=== PATIENT | male | born 1970 | race Hispanic/Latino ===

== ENCOUNTER 2018-06-07 12:45 | Inpatient (IN) | payer MEDICARE ==
[~2018-06-07] VITALS: Ht 165.1 cm; Wt 95.0 kg
[2018-06-07] MEDS ORDERED: PIPERACILLIN/TAZO 4.5 GM 100 ML IV STA (12:58)
[2018-06-07] MEDS ORDERED: VANCOMYCIN 1GM/NS 250 ML 250 ML IV STA (12:58)
[2018-06-07] MEDS ORDERED: SODIUM CHLORIDE 0.9% 1000ML 1,000 ML IV STA (12:58)
[2018-06-07] MEDS ORDERED: INSULIN REGULAR, HUMAN 100 UNIT/1 ML 3ML VIAL SQ ONE (13:00)
[2018-06-07 13:09] LABS: BASOPHILS % 0.3 % (0.0-1.0); EOSINOPHILS # (AUTO) 0.3 (0.0-0.4); EOSINOPHILS % 3.6 % (0.0-6.0); HEMATOCRIT 43.1 % (38.2-49.6); HEMOGLOBIN 14.8 g/dL (14.0-18.0); LYMPHOCYTES # (AUTO) 0.9 (1.0-3.2); LYMPHOCYTES % 9.8 % (18.0-39.1); MEAN CORPUSCULAR HEMOGLOBIN 30.4 pg (28-32); MEAN CORPUSCULAR HGB CONC 34.3 g/dL (31-35); MEAN CORPUSCULAR VOLUME 88.5 fL (81-99); MONOCYTES # (AUTO) 0.7 (0.2-0.8); MONOCYTES % 8.1 % (4.4-11.3); NEUTROPHILS # (AUTO) 7.1 (2.1-6.9); NEUTROPHILS % 77.9 % (38.7-80.0); PLATELET COUNT 330 x10e3/uL (140-360); RED BLOOD COUNT 4.87 x10e6/uL (4.3-5.7)
[2018-06-07 13:25] LABS: ALBUMIN 2.6 g/dL (3.5-5.0); ALBUMIN/GLOBULIN RATIO 0.5 (0.8-2.0); ANION GAP 14.7 mmol/L (8-16); CALCIUM 9.2 mg/dL (8.4-10.2); CREATININE, SERUM 1.39 mg/dL (0.72-1.25); POTASSIUM 3.7 mmol/L (3.5-5.1)
--- NOTE | 2018-06-07 13:45 | Diagnostic Imaging Report ---
PROCEDURE:X-RAY RIGHT FOOT, COMPLETE COMPARISON:None. INDICATIONS:OSTEOMYLITIS FINDINGS: There are no fractures, dislocations, lytic or blastic lesions. The bones are well-mineralized. Right great toe soft tissue defect, edema, and mild emphysema without underlying osseous erosion. Mild vascular calcification. CONCLUSION: Soft tissue changes of right great toe without definite underlying osseous changes to suggest osteomyelitis. Dictated by: Moses Shelby M.D. on 06/07/2018 at 13:51 Electronically approved by: Moses Shelby M.D. on 06/07/2018 at 13:51
[2018-06-07] MEDS ORDERED: MORPHINE SULFATE 2 MG/ML SYR IV PRN (16:15)
[2018-06-07] MEDS ORDERED: ONDANSETRON HCL INJ 2 MG/ML VIAL IV PRN (16:15)
[2018-06-07] MEDS: SODIUM CHLORIDE 0.9% 1000ML 1,000 ML IV SCH (17:04)
[2018-06-07] MEDS ORDERED: PIPER-TAZ 3.375 GM 50 ML IV SCH (18:00)
[2018-06-07 18:08] VITALS: BP 138/84
[2018-06-07 18:17] VITALS: BP 138/84
[2018-06-07 20:00] VITALS: BP 159/92
[2018-06-07] MEDS: PIPER-TAZ 3.375 GM 50 ML IV SCH (20:00)
[2018-06-07 20:17] VITALS: BP 159/92
[2018-06-07] MEDS ORDERED: DEXTROSE 50% SYRINGE 50 ML IV PRN (21:00)
[2018-06-07] MEDS: MORPHINE SULFATE INJ 4 MG/ML INJ IV PRN (21:17)
[2018-06-07] MEDS: INSULIN REGULAR, HUMAN 100 UNIT/1 ML 3ML VIAL SQ SCH (21:22)
[2018-06-07] MEDS ORDERED: ABILIFY5 MG PO (22:27)
[2018-06-07] MEDS ORDERED: PROZAC20 MG PO (22:27)
[2018-06-07] MEDS ORDERED: METFORMIN HCL500 MG PO ×2 (22:27)
[2018-06-08] VITALS (8 sets, daily range): BP systolic 142–186; BP diastolic 72–99
[2018-06-08] MEDS: PIPER-TAZ 3.375 GM 50 ML IV SCH ×4 (02:05→19:47)
[2018-06-08] MEDS: SODIUM CHLORIDE 0.9% 1000ML 1,000 ML IV SCH ×4 (02:05→22:47)
[2018-06-08 05:20] LABS: BASOPHILS # (AUTO) 0.1 (0.0-0.1); BASOPHILS % 0.6 % (0.0-1.0); EOSINOPHILS # (AUTO) 0.6 (0.0-0.4); EOSINOPHILS % 5.8 % (0.0-6.0); HEMATOCRIT 39.7 % (38.2-49.6); HEMOGLOBIN 13.1 g/dL (14.0-18.0); LYMPHOCYTES % 10.5 % (18.0-39.1); MEAN CORPUSCULAR HEMOGLOBIN 30.2 pg (28-32); MEAN CORPUSCULAR VOLUME 91.5 fL (81-99); MONOCYTES % 9.7 % (4.4-11.3); NEUTROPHILS # (AUTO) 7.2 (2.1-6.9); PLATELET COUNT 332 x10e3/uL (140-360); RED BLOOD COUNT 4.34 x10e6/uL (4.3-5.7); RED CELL DISTRIBUTION WIDTH 12.3 % (11.7-14.4)
[2018-06-08 05:52] LABS: ANION GAP 12.4 mmol/L (8-16); BLOOD UREA NITROGEN 15 mg/dL (7-26); BUN/CREATININE RATIO 12 (6-25); CALCIUM 8.8 mg/dL (8.4-10.2); CARBON DIOXIDE 27 mmol/L (22-29); CHLORIDE 101 mmol/L (98-107); CREATININE, SERUM 1.22 mg/dL (0.72-1.25); EST GLOMERULAR FILTRATION RATE > 60 ML/MIN (60-); GLUCOSE 241 mg/dL (74-118); POTASSIUM 4.4 mmol/L (3.5-5.1); SODIUM 136 mmol/L (136-145)
[2018-06-08] MEDS: INSULIN REGULAR, HUMAN 100 UNIT/1 ML 3ML VIAL SQ SCH ×4 (07:30→19:56)
[2018-06-08 07:33] LABS: CHOL/HDL RATIO 2.8 (3.9-4.7)
--- NOTE | 2018-06-08 08:50 | History and Physical ---
PRIMARY CARE PHYSICIAN: [facility]. CHIEF COMPLAINT: Right foot great toe odor and swelling. HISTORY OF PRESENT ILLNESS: This is a 47-year-old man with a history of diabetes mellitus and diabetic foot ulcers with toe amputations in the past with continued cigarette use, now coming in with right foot great toe swelling and odor for the past several days. He has not had antibiotics as an outpatient. He is admitted for further evaluation and management. PAST MEDICAL HISTORY: Diabetes mellitus, type 2, hypertension, hyperlipidemia, cigarette use, diabetic foot ulcer, status post left foot toe amputations. PAST SURGICAL HISTORY: Left foot toe amputations in 2015. ALLERGIES: PER ELECTRONIC MEDICAL RECORD. FAMILY HISTORY/SOCIAL HISTORY: Patient is . He has no children. No alcohol. No illicits. He smokes a quarter pack of cigarettes per day. MEDICATIONS: Per electronic medical record. REVIEW OF SYSTEMS: Denies any dizziness, chest pain, shortness of breath, fever, chills, sweats, nausea, vomiting, diarrhea, back pain, headache. PHYSICAL EXAMINATION VITAL SIGNS: Have been reviewed. GENERAL: A tired-appearing man resting in bed. HEENT: Anicteric. Pupils respond to light. No oral lesions. CARDIOVASCULAR: Normal S1 and S2. LUNGS: Moderate breath sounds. ABDOMEN: Soft, nontender and nondistended. EXTREMITIES: No edema of the forelegs. His left foot has 1st, 2nd, and 3rd digits are absent. The old surgical site appears clean and dry and well-healed. His right foot has great toe which is edematous with necrotic changes, malodorous and nontender. Black necrotic appearing sites are seen on that toe. SKIN: Dry. PSYCHIATRIC: Flat affect. LABS: Reviewed. MEDICATIONS: Reviewed. ASSESSMENT: This is a 47-year-old man with: 1. Right great toe cellulitis and gangrene. 2. Acute kidney injury. 3. Hyponatremia. 4. Diabetes mellitus, type 2. 5. Cigarette use. PLAN 1. Continue antibiotics. He is on vancomycin and Zosyn. 2. Will obtain a vancomycin trough before the 3rd dose. 3. Will obtain a sed rate and CRP. 4. Podiatry consultation. 5. Counseled on cigarette cessation. Start nicotine patch. 6. Consult cardiovascular for evaluation of . 7. Rehydrate the patient. 8. Reassess labs. 9. Start heparin for DVT prophylaxis and Pepcid. 10. Follow up MRI of the foot to evaluate for osteomyelitis. Job#: [id number] RI
[2018-06-08] MEDS: FLUOXETINE HCL 20 MG CAP PO SCH (09:00)
[2018-06-08] MEDS: VANCOMYCIN 1GM/NS 250 ML 250 ML IV SCH (09:00)
[2018-06-08] MEDS ORDERED: ARIPIPRAZOLE 20 MG TAB PO SCH (09:00)
[2018-06-08] MEDS: HEPARIN SOD (PORCINE) 5,000 UNIT/ML VIAL SC SCH ×2 (09:00→20:01)
[2018-06-08] MEDS: NICOTINE 7 MG PATCH TOP SCH (09:00)
[2018-06-08] MEDS: ARIPIPRAZOLE 5 MG TABLET PO SCH (09:00)
[2018-06-08] MEDS: FAMOTIDINE 20 MG TAB PO SCH ×2 (09:00→16:30)
[2018-06-08] MEDS ORDERED: GADOBENATE DIMEGLUMINE 1 ML IV ONE (10:39)
--- NOTE | 2018-06-08 12:32 | Diagnostic Imaging Report ---
MRI of the right forefoot with and without contrast. History: Great toe infection. Osteomyelitis. Diabetes. Technique: Multiplanar multisequence MRI of the right forefoot with and without IV contrast. 20 cc IV gadolinium contrast material was administered. Comparison: None Findings: There is abnormal skin ulceration, skin thickening and soft tissue edema at the plantar aspect of the great toe. There is an adjacent 1 cm ill-defined fluid collection with slight peripheral contrast enhancement and extension to the skin surface best seen on series 10 image 23 and 24. Additionally, there is underlying bone marrow edema in the distal phalanx of the first toe. The findings are consistent with osteomyelitis. No ligamentous or tendon tear is seen. The visualized muscles are normal in size, signal intensity and morphology. No acute fracture, dislocation or evidence of avascular necrosis. Mild scattered degenerative changes are seen. Soft tissue edema about the foot most pronounced dorsally. Impression: Skin ulceration, cellulitis, developing phlegmon/early abscess and osteomyelitis in the distal first toe as described above. Signed by: Dr. Lincoln Jimenez M.D. on 06/08/2018 12:29 PM
[2018-06-09] VITALS (7 sets, daily range): BP systolic 145–175; BP diastolic 81–97
--- NOTE | 2018-06-09 00:28 | Consultation ---
AUDIO CUTTING IN AND OUT IN MULTIPLE PORTIONS OF THE REPORT DATE OF CONSULTATION: June 08, 2018 CARDIOLOGY CONSULTATION CHIEF COMPLAINT: Right 1st toe ulcer with erythema. HISTORY OF PRESENT ILLNESS: Mr. Christiansen is a 47-year-old man with history of diabetes mellitus, type 2, uncontrolled, hypertension, dyslipidemia, smoker actively, and history of right 1st toe amputation, who presents to [facility] with nonhealing ulcer to the right 1st toe associated with erythema in the surrounding area with secretions. Imaging studies are significant for suggestion of abscess, phlegmon associated to ulcer and cellulitis, as well as osteomyelitis of the 1st toe. His initial lactic acid was borderline elevated at 20.3 with an upper limit of normal for range of 19.8. His blood cultures have been negative times 24 hours. His white count was 9.8 and his hemoglobin 13.1 with a creatinine of 1.22, a glucose of 231 with a hemoglobin A1c of 10.9. His LDL was 79, his HDL was 59, and his triglycerides were within normal range at 131. He denies any active chest pain or shortness of breath. He describes pain to the left foot at the wound area. PAST MEDICAL HISTORY: Significant for as described above, diabetes mellitus type 2, hypertension, dyslipidemia, left 1st toe amputation in 2015. ALLERGIES: PER EMR. REVIEW OF SYSTEMS: Reviewed and negative except for as noted above. FAMILY HISTORY: Smoked about a pack of cigarettes daily. MEDICATIONS: Reviewed. Please see medication reconciliation form. PHYSICAL EXAM VITALS: Temperature 99.2, heart rate 92, respiratory rate 19, blood pressure 186/97, O2 sat 97%. GENERAL: In no acute distress, alert. HEENT: Pupils equal and responsive to light. NECK: No JVD. CHEST: Clear to auscultation bilaterally. CARDIOVASCULAR: Regular rate and rhythm with normal S1 and S2. No S3, no S4. No murmurs, no rubs. ABDOMEN: Soft, nontender. EXTREMITIES: No edema. Decreased pulses felt bilaterally. Left 1st toe amputation scar noted. Right 1st with ulcer and erythema, covered with dressings. STUDIES: Reviewed. As described above. MEDICATIONS: Reviewed. ASSESSMENT: A 47-year-old. 1. Right great toe ulcer with gangrene and cellulitis, as well as osteomyelitis. 2. Status post acute kidney injury with chronic kidney disease. 3. Diabetes mellitus, type 2, currently uncontrolled. 4. HLD 5. Hypertension. 6. Dyslipidemia. RECOMMENDATIONS: patient is undergoing hydration. Monitor renal function to assess stability. Will consider angiography. Arterial Doppler BLE ordered. Job#: [id number] CQ MTDD
[2018-06-09] MEDS: PIPER-TAZ 3.375 GM 50 ML IV SCH ×4 (01:54→21:43)
[2018-06-09] MEDS ORDERED: SODIUM CHLORIDE 0.9% 1000ML 1,000 ML IV SCH (05:15)
[2018-06-09] MEDS: ACETAMINOPHEN 325 MG TAB PO PRN ×2 (05:40→21:58)
[2018-06-09] MEDS: FAMOTIDINE 20 MG TAB PO SCH ×2 (07:50→16:25)
--- NOTE | 2018-06-09 08:17 | Progress Note ---
DATE: June 09, 2018 TIME: 7:57 a.m. OVERNIGHT: The patient has osteomyelitis to the toe. REVIEW OF SYSTEMS: Denies any dizziness, chest pain, shortness of breath, fever, chills, sweats, nausea, vomiting, diarrhea, headache, blurred vision. PHYSICAL EXAMINATION VITAL SIGNS: Reviewed. GENERAL: A tired-appearing man resting in bed. HEENT: Anicteric. CARDIOVASCULAR: Normal S1 and S2. LUNGS: Moderate breath sounds. ABDOMEN: Soft, nontender and nondistended. EXTREMITIES: No edema of the foreleg. He has left foot with 1st, 2nd and 3rd digits absent. Old surgical scar site is clean and dry and well-healed. He has a right foot with great toe edematous and necrotic changes, malodorous, and nontender. Black necrotic changes seen. SKIN: Dry. PSYCHIATRIC: Flat affect. LABS: Reviewed. MEDICATIONS: Reviewed. ASSESSMENT: A 47-year-old man with: 1. Right great toe cellulitis and gangrene. 2. Acute kidney injury. 3. Osteomyelitis of the right great toe. 4. Hyponatremia. 5. Diabetes mellitus, type 2. 6. Cigarette use. PLAN 1. Continue antibiotics. 2. LTAC evaluation. 3. Follow up angiogram 4. Will need antibiotics for at least 4 weeks. 5. Continue nicotine patch. 6. Cultures of the wound show gram-negative bacillus and group B strep so far. 7. Sed rate was elevated at 80. 8. Hemoglobin A1c was 10.9, elevated. His LDL was 79 and triglycerides 131. 9. Continue care. 10. Better blood pressure control needed. Will titrate his calcium channel luz up. Job#: [id number] ALIRIO
[2018-06-09] MEDS: HEPARIN SOD (PORCINE) 5,000 UNIT/ML VIAL SC SCH ×2 (08:40→21:43)
[2018-06-09] MEDS: NICOTINE 7 MG PATCH TOP SCH (08:55)
[2018-06-09] MEDS: ARIPIPRAZOLE 5 MG TABLET PO SCH (08:55)
[2018-06-09] MEDS: FLUOXETINE HCL 20 MG CAP PO SCH (08:55)
[2018-06-09] MEDS: NIFEDIPINE CR 30 MG TAB PO SCH ×2 (08:55→21:43)
[2018-06-09] MEDS ORDERED: NIFEDIPINE CR 30 MG TAB PO SCH (09:00)
[2018-06-09] MEDS: VANCOMYCIN 1GM/NS 250 ML 250 ML IV SCH ×2 (09:25→22:20)
[2018-06-09] MEDS: INSULIN REGULAR, HUMAN 100 UNIT/1 ML 3ML VIAL SQ SCH ×4 (11:45→21:00)
--- NOTE | 2018-06-09 13:24 | Progress Note ---
DATE: June 09, 2018 CARDIOLOGY PROGRESS NOTE SUBJECTIVE: No complaints. OBJECTIVE VITAL SIGNS: Temperature 97.1, heart rate 95, respiratory rate 18, blood pressure 175/92. GENERAL: In no acute distress. Alert. NECK: No JVD. CHEST: Clear to auscultation. CARDIOVASCULAR: Regular rate and rhythm. Normal S1 and S2. No S3. No S4. ABDOMEN: Soft and nontender. EXTREMITIES: No edema. Left first toe stump/scar. Right first toe wound. STUDIES: Reviewed. Glucose 354. ASSESSMENTS 1. Right first toe ulceration with abnormal pulsation, highly concerning for peripheral arterial disease, status post arterial Doppler pending review. 2. Diabetes mellitus, uncontrolled. 3. History of left first toe amputation. RECOMMENDATIONS: Arterial Dopplers currently not downloaded. Once available, will review. Will plan tentatively toward peripheral angiography and possible peripheral intervention tomorrow in the afternoon as cath schedule allows. Initiate hydration. NPO after breakfast starting tomorrow. Job#: [id number] ARTHUR
--- NOTE | 2018-06-09 13:43 | Consultation ---
DATE OF CONSULTATION: June 09, 2018 REASON FOR CONSULTATION: Gangrene with pain to the right foot with patient being a bfl-wljmwtx-pckieorag diabetic. HISTORY OF PRESENT ILLNESS: This is a pleasant 47-year-old male with a history of usb-crchinc-cltwxqwxf diabetes times 15+ years and depression, who relates he has had a lesion to the right great toe, starting getting significantly worse, started having some nausea and fever upon presentation. Denies any history of fever, chills, nausea or vomiting at this time since he has been getting his IV antibiotics. He is currently on IV vancomycin and Zosyn. He has pain along the 1st metatarsophalangeal joint of the right foot when wearing shoes. PAST MEDICAL HISTORY: As described above. PAST SURGICAL HISTORY: Remarkable for multiple left foot surgeries including amputations to 1st through 3rd toes, left foot. ALLERGIES: Patient denies. SOCIAL HISTORY: He used to smoke a pack a day of cigarettes daily. Relates he stopped. Does not do any drugs or alcohol. Lives with his mom and sister. . Has no kids. FAMILY HISTORY: Remarkable for diabetes. CURRENT MEDICATIONS: Include IV vancomycin and Zosyn. REVIEW OF SYSTEMS CARDIAC: Is denying any palpitations or arrhythmias. RESPIRATORY: Denies any shortness of breath or productive cough. GASTROINTESTINAL: Denies any diarrhea or constipation. GENITOURINARY: Denies hematuria or problems voiding. VITALS: Afebrile. Pulse rate 95, respirations 18, blood pressure 175/92, O2 saturation 96%. LABS: Noted. Has a white blood cell count of 9.2, hemoglobin 13.1 with a platelet count of 332, hematocrit of 39.7. PODIATRIC PHYSICAL EXAMINATION: Reveals the following. VASCULAR: Pedal pulses to both the DP and PT are palpable but diminished. CFT to all toes except the right great toe is less than 4 seconds. NEUROLOGICAL: There is a complete loss of protective sensation when utilizing Cogswell-Mario 5.07 monofilament wire. MUSCULOSKELETAL: Shows muscle mass to be asymmetrical. Some swelling noted to the right foot and leg when compared to the left. Has pain along the 1st MPJ, right foot. Erythema to the 1st metatarsal head. DERMATOLOGICAL Reveals gangrenous changes with grade 4 ulcer right great toe, which has foul smell in nature. X RAYS: Are questionable for osteomyelitis. Does have what seems to be an abscess to the distal aspect of the right great toe. ASSESSMENTS 1. Hallux valgus deformity. 2. Gangrene. 3. Osteomyelitis with abscess right foot. PLAN: Will start diluted wet-to-dry Betadine b.i.d. Will continue IV antibiotics. Will let the foot demarcate. Patient will be scheduled for surgical intervention on Thursday which will consist of I and D of the right foot, amputation right great toe, partial resection of the 1st metatarsal head, right foot with rotational flap closure. Patient understands. No warranties or guarantees will be given. Will continue to follow. Job#: [id number] ARTHUR
[2018-06-09] MEDS: SODIUM CHLORIDE 0.9% 1000ML 1,000 ML IV SCH ×2 (14:13→21:43)
--- NOTE | 2018-06-09 14:46 | Consultation ---
DATE OF CONSULTATION: June 09, 2018 ATTENDING PHYSICIAN: Dr. Carlos Chavarria REASON FOR CONSULTATION: Osteomyelitis of the toe. Thank you, Dr. Chavarria, for asking me to see this patient. HISTORY: The patient is a 47-year-old man referred for osteomyelitis of the toe. He presented to the emergency department on 06/07/2018 with progressive swelling and black discoloration of the right great toe. He developed blisters of the toe a few days earlier but did not seek medical help and treated himself with Iodosorb left over from prior admission. He denies fever and chills. In the emergency department, he was noted to have temperature 99.7 degrees Fahrenheit, pulse 102, respiratory rate 18, blood pressure 180/89, and oxygen saturation 99% on room air. Initial laboratory studies showed blood leukocyte count of 9,090, ESR 80, BUN 18, creatinine 1.38, and blood glucose 361. MRI of the right foot showed skin ulceration, cellulitis, developing phlegmon/early abscess and osteomyelitis of the distal 1st toe. The patient has been evaluated by the podiatry service, and surgery is being planned. PAST MEDICAL HISTORY: Diabetes mellitus type 2, peripheral neuropathy, hypertension, right great toe ulcer. PAST SURGICAL HISTORY: Amputation of the 1st through 3rd toes of the left foot. ALLERGIES: NO KNOWN DRUG ALLERGIES. MEDICATIONS: The current antibiotics are Zosyn 3.375 grams IV piggyback q.6 h. and vancomycin 1 gram IV piggyback daily. IMMUNIZATIONS: Patient has not received tetanus-diphtheria vaccine to the best of his knowledge. FAMILY HISTORY: Noncontributory. SOCIAL HISTORY: He smokes 1/2 pack of cigarettes a day. He quit drinking alcohol in 2012. No recreational drug use. REVIEW OF SYSTEMS: As per history of present illness. PHYSICAL EXAMINATION VITALS: T-max 99.2, pulse 95, respiratory rate 18, blood pressure 175/92, and weight 211 pounds. GENERAL: In no acute distress. HEENT: Normocephalic. There is no icterus or injection of conjunctivae. There is no ear or nasal discharge. Moist oral mucosa. No pharyngeal exudate. NECK: Supple. No lymphadenopathy or meningismus. LUNGS: Good air entry bilaterally. HEART: Normal S1 and S2. ABDOMEN: Normal bowel sounds. The abdomen is soft and nontender. EXTREMITIES: There is gangrene of the right great toe with malodor. There is trace edema of the right forefoot. The dorsalis pedis and posterior tibial pulses are difficult to palpate in both feet. The left 1st through 3rd toes are absent. SKIN: As per extremities. EXECUTIVE ACCOUNT MANAGER: Awake, alert and oriented to person, place and time. There is decreased sensation on monofilament examination of the feet. LABORATORY AND DIAGNOSTICS: 06/08/2018: WBC 9,820, hemoglobin 13.1, platelets 332,000, neutrophils 73, lymphs 10.5, monos 9.7, eosinophils 5.8, basophils 0.2, BUN 15, creatinine 1.22, blood glucose 354. C-reactive protein pending. Vancomycin trough 3.3. IMPRESSION 1. Infected diabetic foot ulcer. 2. Gangrene of the right 1st toe. 3. Diabetes mellitus, type 2, with peripheral neuropathy, uncontrolled. 4. Tobacco use disorder. PLAN 1. Check arterial Doppler ultrasound of the right lower extremity. 2. Await surgery. Deep tissue distally should be obtained during surgery for culture and sensitivity. 3. Change vancomycin to 1 gram IV piggyback q.12 h. Administer tetanus-diphtheria vaccination. 4. Smoking cessation counseling was provided to the patient. The patient was offered nicotine replacement therapy, but he declined. Job#: [id number]
[2018-06-09] MEDS: MORPHINE SULFATE INJ 4 MG/ML INJ IV PRN (14:49)
[2018-06-09] MEDS ORDERED: TETANUS/DIPHTHERIA TOX ADULT 0.5 ML SYR IM NR (15:00)
[2018-06-10] VITALS (8 sets, daily range): BP systolic 124–174; BP diastolic 73–93
[2018-06-10] MEDS: PIPER-TAZ 3.375 GM 50 ML IV SCH ×4 (02:00→21:47)
[2018-06-10] MEDS: SODIUM CHLORIDE 0.9% 1000ML 1,000 ML IV SCH ×3 (04:12→20:12)
[2018-06-10 05:14] LABS: BASOPHILS # (AUTO) 0.1 (0.0-0.1); BASOPHILS % 0.7 % (0.0-1.0); EOSINOPHILS # (AUTO) 0.7 (0.0-0.4); EOSINOPHILS % 9.1 % (0.0-6.0); HEMATOCRIT 42.2 % (38.2-49.6); HEMOGLOBIN 14.1 g/dL (14.0-18.0); LYMPHOCYTES # (AUTO) 1.3 (1.0-3.2); LYMPHOCYTES % 16.2 % (18.0-39.1); MEAN CORPUSCULAR HEMOGLOBIN 30.2 pg (28-32); MEAN CORPUSCULAR HGB CONC 33.4 g/dL (31-35); MEAN CORPUSCULAR VOLUME 90.4 fL (81-99); MONOCYTES # (AUTO) 0.7 (0.2-0.8); MONOCYTES % 8.6 % (4.4-11.3); NEUTROPHILS # (AUTO) 5.3 (2.1-6.9); NEUTROPHILS % 64.5 % (38.7-80.0); PLATELET COUNT 396 x10e3/uL (140-360); RED BLOOD COUNT 4.67 x10e6/uL (4.3-5.7); RED CELL DISTRIBUTION WIDTH 12.2 % (11.7-14.4)
[2018-06-10 05:41] LABS: ANION GAP 15.9 mmol/L (8-16); BLOOD UREA NITROGEN 11 mg/dL (7-26); BUN/CREATININE RATIO 9 (6-25); CALCIUM 9.5 mg/dL (8.4-10.2); CARBON DIOXIDE 23 mmol/L (22-29); CHLORIDE 103 mmol/L (98-107); CREATININE, SERUM 1.16 mg/dL (0.72-1.25); EST GLOMERULAR FILTRATION RATE > 60 ML/MIN (60-); GLUCOSE 178 mg/dL (74-118); POTASSIUM 3.9 mmol/L (3.5-5.1); SODIUM 138 mmol/L (136-145)
[2018-06-10] MEDS: MORPHINE SULFATE INJ 4 MG/ML INJ IV PRN ×2 (05:57→14:19)
[2018-06-10] MEDS: INSULIN REGULAR, HUMAN 100 UNIT/1 ML 3ML VIAL SQ SCH ×4 (07:48→21:00)
[2018-06-10] MEDS: FAMOTIDINE 20 MG TAB PO SCH ×2 (08:12→16:30)
[2018-06-10] MEDS: ARIPIPRAZOLE 5 MG TABLET PO SCH (08:14)
[2018-06-10] MEDS: FLUOXETINE HCL 20 MG CAP PO SCH (08:14)
[2018-06-10] MEDS: NICOTINE 7 MG PATCH TOP SCH (08:14)
[2018-06-10] MEDS: NIFEDIPINE CR 30 MG TAB PO SCH ×2 (08:14→21:00)
--- NOTE | 2018-06-10 08:20 | Progress Note ---
DATE: June 10, 2018 TIME: 7:57 a.m. OVERNIGHT: No events. REVIEW OF SYSTEMS: Denies any dizziness or chest pain. PHYSICAL EXAMINATION VITAL SIGNS: Reviewed. GENERAL: A tired-appearing man resting in bed. HEENT: Anicteric. CARDIOVASCULAR: Normal S1 and S2. LUNGS: Moderate breath sounds. ABDOMEN: Soft and nontender. EXTREMITIES: He has no edema of the left foot. On the left foot, absent 1st, 2nd and 3rd digits. He has a right foot with necrotic appearing toe with dressing in place. SKIN: Dry. PSYCHIATRIC: Flat affect. LABS: Reviewed. MEDICATIONS: Reviewed. ASSESSMENT: A 47-year-old man with: 1. Right great toe cellulitis and gangrene. 2. Osteomyelitis of the right great toe. 3. Acute kidney injury. 4. Hyponatremia. 5. Diabetes mellitus, type 2. 6. Cigarette use. 7. Proteus mirabilis and group B streptococcus osteomyelitis. PLAN 1. Continue antibiotics. 2. Angiogram today. 3. Possible amputation tomorrow. 4. LTAC evaluation. 5. Hemoglobin A1c 10.9, LDL 79 and triglycerides 131. 6. Sed rate was 80. 7. Blood pressure better controlled today. Job#: [id number] [place]
[2018-06-10 09:20] LABS: INR 1.01; PROTHROMBIN TIME 12.5 seconds (11.9-14.5)
--- NOTE | 2018-06-10 09:26 | Progress Note ---
DATE: June 10, 2018 SUBJECTIVE: Patient at bedside. Denying any history of fever, chills, nausea or vomiting. No shortness of breath, no chest pain. OBJECTIVE VITAL SIGNS: Afebrile. Pulse rate 94, respirations 18, blood pressure 144/93, and O2 saturation 95%. EXTREMITIES: Has gangrenous changes to the right great toe with a grade 4 ulceration, foul smell present. Erythema surrounding first metatarsophalangeal joint with decreased cellulitis to the dorsal aspect of right foot. LABS: Noted. Has a white blood cell count of 8.15, hemoglobin 14.1, hematocrit 42.2 with a platelet count of 396,000. Blood glucose of 178. ASSESSMENT: Grade 4 ulcer, abscess, osteomyelitis with hallux valgus deformity, capsulitis, 1st metatarsophalangeal joint. PLAN: Patient will be taken for surgical intervention tomorrow. Surgery will consist of I and D of abscess, amputation of right great toe, partial resection of first metatarsal right foot with rotational flap closure. Patient understands no warranties or guarantees can be given, may need further surgery if not responsive. Will continue local wound care and IV antibiotics such as vancomycin and Zosyn. Chest x-ray and EKG will also be ordered. Job#: [id number]
[2018-06-10] MEDS: VANCOMYCIN 1GM/NS 250 ML 250 ML IV SCH ×2 (09:28→22:35)
--- NOTE | 2018-06-10 17:30 | Diagnostic Imaging Report ---
EXAMINATION: PA and lateral views of the chest. COMPARISON: None CLINICAL HISTORY: Right great toe amputation DISCUSSION: Lines/tubes: None. Lungs: The lungs are well inflated and clear. There is no evidence of pneumonia or pulmonary edema. Pleura: There is no pleural effusion or pneumothorax. Heart and mediastinum: Mild enlargement of the cardiac silhouette. Pulmonary vasculature is normal. Bones and soft tissues: No acute bony abnormalities. Degenerative changes in the thoracic spine IMPRESSION: Mild enlargement of the cardiac silhouette, without acute cardiopulmonary abnormalities. Signed by: Dr. Larry Ugarte M.D. on 06/10/2018 5:26 PM
[2018-06-11] VITALS (7 sets, daily range): BP systolic 127–153; BP diastolic 78–98
[2018-06-11] MEDS: PIPER-TAZ 3.375 GM 50 ML IV SCH ×4 (02:00→20:15)
--- NOTE | 2018-06-11 03:18 | Progress Note ---
DATE: CARDIOLOGY PROGRESS NOTE SUBJECTIVE: No complaints today. Discussed at length the Doppler arterial ultrasound findings. Significant for mild PAD as noted by Arterial Dopplers onto the images, as well as spectral broadening of waveforms, however triphasic down to foot. SUBJECTIVE VITAL SIGNS: Temperature 98.8, heart rate 95, respiratory rate 18, blood pressure 146/86. GENERAL: In no acute distress, alert. NECK: No JVD. CHEST: Clear to auscultation. CARDIOVASCULAR: Regular rate and rhythm. Normal S1 and S2. No S3, no S4. ABDOMEN: Soft. EXTREMITIES: Trace edema. Left 1st toe amputation site healed well. Right 1st toe with ulceration covered with dressings. LABS: Reviewed. Hemoglobin 14.1, platelets 396,000. ASSESSMENT AND PLAN 1. Diabetic foot with right 1st toe cellulitis and ulceration. 2. Mild peripheral artery disease as noted by the arterial Dopplers. 3. Uncontrolled diabetes. RECOMMENDATIONS: Given arterial Doppler, angiographic assessment has been deferred at this point. Aggressive management from the wound care standpoint, infectious disease standpoint, and podiatry standpoint is advised, particular attention to diabetes control advised. We will follow closely. Job#: [id number] CQ KRANTHI
[2018-06-11] MEDS: SODIUM CHLORIDE 0.9% 1000ML 1,000 ML IV SCH ×2 (04:12→13:00)
[2018-06-11] MEDS: MORPHINE SULFATE INJ 4 MG/ML INJ IV PRN (04:47)
[2018-06-11] MEDS ORDERED: BACITRACIN ZINC 15 GM OINT ONE (07:09)
[2018-06-11] MEDS ORDERED: BETAMETHASONE DISODIUM PHOS 6 MG/ML VIAL ONE (07:09)
[2018-06-11] MEDS ORDERED: BACITRACIN 50,000 UNIT VIAL ONE (07:09)
[2018-06-11] MEDS ORDERED: LIDOCAINE HCL 1% LOCAL INJ 20 ML VIAL ONE (07:09)
[2018-06-11] MEDS ORDERED: BUPIVACAINE HCL 0.5% INJ 30 ML VIAL INJ ONE (07:09)
[2018-06-11] MEDS: INSULIN REGULAR, HUMAN 100 UNIT/1 ML 3ML VIAL SQ SCH ×5 (07:30→21:00)
--- NOTE | 2018-06-11 09:45 | Operative Report ---
DATE OF PROCEDURE: June 11, 2018 PREOPERATIVE DIAGNOSES 1. Abscess, right foot. 2. Osteomyelitis, right foot. 3. Grade 4 ulcer, right great toe. 4. Hallux valgus deformity, right foot. POSTOPERATIVE DIAGNOSES: Confirmed. OPERATIVE PROCEDURES 1. Incision and drainage of abscess, right foot, down to bone. 2. Amputation, right great toe. 3. Partial resection 1st metatarsal, right foot. 4. Rotational flap closure. ANESTHESIA: General. HEMOSTASIS: Pneumatic thigh tourniquet at 350 mmHg. PROCEDURE IN DETAIL: Patient was taken into the operating room, placed on the operating room table in supine position. Following induction of general anesthesia by the anesthesiologist, Webril wraps were placed on the patient's right thigh followed by application of right thigh tourniquet. The right lower extremity was then prepped and draped in the usual aseptic manner. Following procedures were then performed. Procedure #1: I and D of abscess, right foot. Attention was directed to the distal aspect of the right great toe where an incision was carried down to the distal phalanx. Abscess was encountered and cultured for aerobic and anaerobic growth. Severe foul smell noted. Secondary to the nature of the necrosis, procedure #2 will be performed. Procedure #2: Amputation of right great toe was then done. A racquet-shaped incision was performed overlying the metatarsophalangeal joint. Then, the right great toe was disarticulated and sent for pathological analysis. Procedure # 3: Partial resection first metatarsal, right foot, secondary to protrusion of the 1st metatarsal head. Utilizing the oscillating saw, the medial 1/2 of the 1st metatarsal was excised from the operation site in toto and all rough and bony edges were rasped smooth. Procedure #4: Rotational flap closure. All necrotic tissue was then removed. The thigh tourniquet was then released and all pumpers or ligators were bovied or tied as necessary. Necrotic tissue was removed. The incision was then carried more proximally dorsally and plantarly laterally to create a plantar flap to allow for proper closure with minimal skin tension. The flap was a full-thickness flap. The flap was then dorsally displaced and the capsule was then re-aligned utilizing 2-0 Vicryl. The skin margins were then re-aligned utilizing 3-0 nylon in a horizontal mattress-type fashion with minimal skin tension. Patient was then anesthetized utilizing 12 to 14 mL of 0.5% plain Marcaine plus 5 mL of 1% Xylocaine plain and 0.5 mL of Celestone. The sterile dressing was applied. The patient was then transferred from the OR to recovery room with vital signs stable and neurovascular status intact. Minimal blood loss was obtained from the surgery. Patient will remain in the hospital for IV antibiotics. If not responsive, may need a more proximal amputation. Will continue following in the hospital. Job#: [id number]
[2018-06-11] MEDS: ARIPIPRAZOLE 5 MG TABLET PO SCH (10:09)
[2018-06-11] MEDS: VANCOMYCIN 1GM/NS 250 ML 250 ML IV SCH ×2 (10:09→21:00)
[2018-06-11] MEDS: FAMOTIDINE 20 MG TAB PO SCH ×2 (10:09→16:10)
[2018-06-11] MEDS: NIFEDIPINE CR 30 MG TAB PO SCH ×2 (10:10→20:22)
[2018-06-11] MEDS: NICOTINE 7 MG PATCH TOP SCH (10:10)
[2018-06-11] MEDS: FLUOXETINE HCL 20 MG CAP PO SCH (10:10)
[2018-06-11] MEDS: HYDROCODONE/APAP 5MG-325MG TAB PO PRN ×2 (16:10→20:15)
[2018-06-11] MEDS ORDERED: LIDOCAINE HCL 2% LOCAL INJ 5 ML SDV VIAL INJ ONE (17:31)
[2018-06-11] MEDS ORDERED: SEVOFLURANE INHAL SOLN 250 ML PEN BTL ONE (17:31)
[2018-06-11] MEDS ORDERED: DEXAMETHASONE SOD PHOS INJ 4 MG/ML VIAL ONE (17:31)
[2018-06-11] MEDS ORDERED: PROPOFOL IV EMULSION 10 MG/ML 20 ML VIAL ONE (17:31)
[2018-06-11] MEDS ORDERED: ONDANSETRON HCL INJ 2 MG/ML VIAL ONE (17:31)
[2018-06-11] MEDS ORDERED: FENTANYL CITRATE/PF 100MCG/2 ML INJ ONE (17:56)
[2018-06-11] MEDS ORDERED: MIDAZOLAM HCL 2 MG/2 ML VIAL ONE (17:56)
--- NOTE | 2018-06-11 21:01 | Progress Note ---
DATE: June 11, 2018 CARDIOLOGY PROGRESS NOTE SUBJECTIVE: No complaints. OBJECTIVE VITAL SIGNS: Reviewed and stable. GENERAL: In no acute distress, alert. NECK: No JVD. CHEST: Clear to auscultation. CARDIOVASCULAR: Regular rate and rhythm. Normal S1 and S2. No S3, no S4. ABDOMEN: Soft. EXTREMITIES: No edema. Left 1st toe amputation stump and right foot covered with dressing status post debridement by podiatry. STUDIES: Reviewed. LABS: Reviewed. MEDICATIONS: Reviewed. ASSESSMENT 1. Diabetes mellitus. 2. Diabetic foot with osteomyelitis and wound. 3. Mild peripheral artery disease by Doppler ultrasound. 4. Hypertension. RECOMMENDATIONS 1. Continue wound care and IV antibiotics. 2. ASA/ statin from a cardiovascular standpoint. May need LTAC transfer for continued care. Job#: [id number] ALESSANDRA CRISOSTOMO
--- NOTE | 2018-06-11 21:07 | Progress Note ---
DATE: June 11, 2018 TIME: 6:40 a.m. OVERNIGHT: No events. REVIEW OF SYSTEMS: Denies any dizziness, chest pain, shortness of breath, fever, chills. Denies nausea, vomiting, diarrhea. PHYSICAL EXAMINATION VITAL SIGNS: Reviewed. GENERAL: A tired-appearing man resting in bed. HEENT: Anicteric. CARDIOVASCULAR: Normal S1 and S2, without murmurs. ABDOMEN: Soft, nontender, nondistended. EXTREMITIES: Right foot great toe with necrotic changes. Left foot 1st, 2nd, and 3rd digits are absent. SKIN: Dry. PSYCHIATRIC: Normal affect. LABS: Reviewed. MEDICATIONS: Reviewed. ASSESSMENT: A 47-year-old man with 1. Right great toe cellulitis and gangrene. 2. Osteomyelitis of the right foot great toe. 3. Acute kidney injury. 4. Hyponatremia. 5. Diabetes mellitus, type 2. Hemoglobin A1c 10.9. LDL 79. Triglyceride 131. 6. Hyponatremia. 7. Cigarette abuse. 8. Proteus mirabilis and group B streptococcus osteomyelitis. PLAN 1. Surgery pending today. 2. Continue antibiotics. 3. LTAC evaluation pending. 4. Blood pressure control. Job#: [id number] CQ
[2018-06-12] MEDS: SODIUM CHLORIDE 0.9% 1000ML 1,000 ML IV SCH ×3 (00:49→11:28)
[2018-06-12 01:11] VITALS: BP 140/73
[2018-06-12] MEDS: PIPER-TAZ 3.375 GM 50 ML IV SCH ×2 (02:00→08:00)
[2018-06-12] MEDS: HYDROCODONE/APAP 5MG-325MG TAB PO PRN (04:37)
[2018-06-12 04:46] LABS: BASOPHILS % 0.3 % (0.0-1.0); EOSINOPHILS # (AUTO) 0.3 (0.0-0.4); EOSINOPHILS % 2.5 % (0.0-6.0); HEMOGLOBIN 13.5 g/dL (14.0-18.0); LYMPHOCYTES # (AUTO) 1.1 (1.0-3.2); LYMPHOCYTES % 11.5 % (18.0-39.1); MEAN CORPUSCULAR HGB CONC 33.8 g/dL (31-35); MEAN CORPUSCULAR VOLUME 88.9 fL (81-99); MONOCYTES % 9.9 % (4.4-11.3); NEUTROPHILS # (AUTO) 7.4 (2.1-6.9); NEUTROPHILS % 75.1 % (38.7-80.0); PLATELET COUNT 409 x10e3/uL (140-360)
--- NOTE | 2018-06-12 05:53 | Diagnostic Imaging Report ---
FOOT RIGHT COMPLETE Comparison: 06/07/2018 Clinical history: \S\s/p right toe amputation \[id number] \[id number] Findings: Status post interval right first toe phalanx amputation and resection of the medial distal first metatarsal. No bony erosion or acute fracture. Vascular calcifications. There is mild soft tissue swelling about the first digit with overlying bandaging. Impression: Postsurgical changes of the first toe. No radiographic evidence of osteomyelitis. Signed by: Dr Dannielle Munoz MD on 06/12/2018 5:50 AM
[2018-06-12 06:33] VITALS: BP 158/94
[2018-06-12] MEDS ORDERED: Insulin Detemir SQ (06:59)
[2018-06-12] MEDS ORDERED: LABETALOL HCL100 MG PO (06:59)
[2018-06-12] MEDS ORDERED: FAMOTIDINE20 MG PO (06:59)
[2018-06-12] MEDS ORDERED: NICODERM CQ1 EACH TOP (06:59)
[2018-06-12] MEDS ORDERED: NIFEDIPINE ER30 M1 PO (06:59)
[2018-06-12] MEDS: FAMOTIDINE 20 MG TAB PO SCH (07:30)
[2018-06-12] MEDS: INSULIN REGULAR, HUMAN 100 UNIT/1 ML 3ML VIAL SQ SCH (07:30)
[2018-06-12 08:24] VITALS: BP 135/81
[2018-06-12] MEDS: NIFEDIPINE CR 30 MG TAB PO SCH (09:00)
[2018-06-12] MEDS: ARIPIPRAZOLE 5 MG TABLET PO SCH (09:00)
[2018-06-12] MEDS: FLUOXETINE HCL 20 MG CAP PO SCH (09:00)
[2018-06-12] MEDS ORDERED: LABETALOL HCL 100 MG TAB PO SCH (09:00)
[2018-06-12] MEDS ORDERED: INSULIN DETEMIR 100 UNIT/ML PEN SQ SCH (09:00)
[2018-06-12] MEDS: NICOTINE 7 MG PATCH TOP SCH (09:00)
--- NOTE | 2018-06-12 11:27 | Diagnostic Imaging Report ---
EXAMINATION: CHEST XRAY LINE PLACEMENT 06/12/2018 10:56 AM COMPARISON: 06/10/2018 INDICATION: PICC line placement DISCUSSION: LINES: Right upper chest from the PICC line has its tip at the cavoatrial junction. LUNGS: The lungs are well inflated and clear. No pneumonia or pulmonary edema. PLEURA: No pleural effusion or pneumothorax. HEART AND MEDIASTINUM: The cardiomediastinal silhouette is unremarkable. BONES AND SOFT TISSUES: No acute osseous lesion. The soft tissues are normal. IMPRESSION: Right upper extremity PICC line has its tip at the cavoatrial junction Han Navas MD Signed by: Dr. aHn Navas M.D. on 06/12/2018 11:24 AM
[2018-06-12 11:48] LABS: ANION GAP 14.1 mmol/L (8-16); CALCIUM 9.4 mg/dL (8.4-10.2); CREATININE, SERUM 1.33 mg/dL (0.72-1.25); POTASSIUM 4.1 mmol/L (3.5-5.1)
[2018-06-12 12:24] VITALS: BP 138/88
[2018-06-12] MEDS ORDERED: ASPIRIN 81 MG CHEW TAB PO SCH (13:30)
--- NOTE | 2018-06-12 14:58 | Progress Note ---
DATE: June 12, 2018 CARDIOLOGY PROGRESS NOTE SUBJECTIVE: No complaints today. OBJECTIVE VITAL SIGNS: Temperature 96 degrees, heart rate 86, respiratory rate 19, blood pressure 138/88. O2 sat is 96% on room air. GENERAL: In no acute distress, alert. NECK: No JVD. CHEST: Clear to auscultation. CARDIOVASCULAR: Regular rate and rhythm. Normal S1 and S2. No S3, no S4. No murmurs or rubs. ABDOMEN: Soft. Nontender and nondistended. EXTREMITIES: No edema. Right foot wound covered with a dressing. Left healing stump. CARDIOVASCULAR MEDICATIONS: Reviewed. On labetalol 100 mg every 12 hours, nifedipine extended release 60 mg every 12 hours, NicoDerm patch 7 mg daily. STUDIES: White blood cells 9.8, hemoglobin 13.5, platelets 409. Sodium 135, potassium 4.1, chloride 100, bicarbonate 25, BUN 14, creatinine 1.33, glucose 335. Calcium 9.4. Vancomycin 14.9. ASSESSMENT 1. Right diabetic foot wound with osteomyelitis. 2. Acute kidney injury, improved. 3. Diabetes mellitus, type 2, with uncontrolled A1c at 10.9. 4. Smoker. 5. Mild peripheral artery disease. RECOMMENDATIONS 1. Add aspirin 81 mg daily. 2. Add atorvastatin 20 mg each bedtime for cardiovascular risk optimization. 3. Consider SGLT2 inhibitor as outpatient for optimization of diabetes and cardiovascular risk. 4. Smoking cessation counseling has been extensively discussed. 5. Continue current cardiovascular medications. Job#: [id number]
[2018-06-12 15:58] VITALS: BP 150/89
[2018-06-13] MEDS ORDERED: ATORVASTATIN 20 MG TAB PO SCH (09:00)
== END 2018-06-12 17:44 | DRG 617 ==
LOC: ER 12:45 → ERHOLD 16:28 → MED/SURG2 17:55
PROVIDERS: ADMIT Internal Medicine; ATTEND Internal Medicine
PROC: 0QBN0ZZ Excision of Right Metatarsal, Open Approach (ICD-10-PCS; 2018-06-11)
PROC: 0HXMXZZ Transfer Right Foot Skin, External Approach (ICD-10-PCS; 2018-06-11)
PROC: 0Y6P0Z0 Detachment at Right 1st Toe, Complete, Open Approach (ICD-10-PCS; principal; 2018-06-11 07:30)
DX: E11.69 Type 2 diabetes mellitus with other specified complication (principal); E11.52 Type 2 diabetes mellitus with diabetic peripheral angiopathy with gangrene; I96 Gangrene, not elsewhere classified; E87.1 Hypo-osmolality and hyponatremia; L03.115 Cellulitis of right lower limb; M86.171 Other acute osteomyelitis, right ankle and foot; N17.9 Acute kidney failure, unspecified; L03.031 Cellulitis of right toe; B96.89 Other specified bacterial agents as the cause of diseases classified elsewhere; B96.4 Proteus (mirabilis) (morganii) as the cause of diseases classified elsewhere; B95.1 Streptococcus, group B, as the cause of diseases classified elsewhere; E11.65 Type 2 diabetes mellitus with hyperglycemia; E86.0 Dehydration; I12.9 Hypertensive chronic kidney disease with stage 1 through stage 4 chronic kidney disease, or unspecified chronic kidney disease; E11.22 Type 2 diabetes mellitus with diabetic chronic kidney disease; N18.9 Chronic kidney disease, unspecified; Z72.0 Tobacco use; M20.5X1 Other deformities of toe(s) (acquired), right foot; B96.5 Pseudomonas (aeruginosa) (mallei) (pseudomallei) as the cause of diseases classified elsewhere; E11.621 Type 2 diabetes mellitus with foot ulcer; L97.519 Non-pressure chronic ulcer of other part of right foot with unspecified severity; E78.5 Hyperlipidemia, unspecified
CPT/HCPCS: 36415; 36569; 71045; 71046; 80048; 80053; 80061; 80202; 82948; 83036; 83605; 85025; 85610; 85651; 86140; 87040; 87071; 87075; 87186; 87205; 88304; 88311; 90714; 93005; 93925; 96372; 96374; 99284; J0720; J1100; J1644; J2001; J2250; J2270; J2405; J2543; J3370; J7030

== ENCOUNTER 2018-08-31 09:13 | Inpatient (IN) | payer MEDICARE ==
[~2018-08-31] VITALS: Ht 153.9 cm; Wt 95.7 kg
[~2018-08-31 09:13] MED LIST: ABILIFY5 MG PO; FAMOTIDINE20 MG PO; Insulin Detemir SQ; LABETALOL HCL100 MG PO; METFORMIN HCL500 MG PO; NICODERM CQ1 EACH TOP; NIFEDIPINE ER30 M1 PO; PROZAC20 MG PO
--- OUTSIDE RECORDS SUMMARY | 2018-08-31 09:15 | XMS REPORT | Continuity of Care Document ---
Author Author [facility] Interface Address Unknown Phone Unavailable Problems Problem Status Onset Date Classification Date Reported Comments Source EXTENSIVE LEFT BIG TOE CELLULITIS AND NE Active 09/06/2014 [facility] TOE PAIN Active 09/06/2014 [facility] Schizophrenia Resolved 10/19/2011 Problem 09/13/2014 [facility] Diabetes Active Problem 09/13/2014 [facility] Hypertension Active Problem 09/13/2014 [facility] CELLULITIS OF FOOT Active [facility] Medications Medication Details Route Status Patient Instructions Ordering Provider Order Date Source Metformin hydrochloride 500 MG Oral Tablet 500 mg, 1 tab, Route: PO, Drug form: TAB, BID, Dosing Weight 81.818, kg, Start date: 09/11/14 17:00:00, Duration: 30 day, Stop date: 10/11/14 9:00:00Notes: (Same as: Glucophage) Take with meal Inactive 09/11/2014 [facility] Amoxicillin 875 MG / Clavulanate 125 MG Oral Tablet [Augmentin 875-mg] 2 tab, PO, Q12H, # 40 tab, 0 Refill(s) Active 09/11/2014 [facility] Blood Glucose Monitor 1 ea, MISC, Daily, Use as directed., # 1 ea, 0 Refill(s)Special Instructions: Use as directed. Active 09/11/2014 [facility] Lancets 1 box, MISC, Daily, # 1 box, 0 Refill(s) Active 09/11/2014 [facility] Insulin Syringes (U 100) 1 syr, SUB-Q, ONCALL, # 100 syr, 0 Refill(s) Active 09/11/2014 [facility] Glucose Control Solution 1 ea, MISC, Daily, # 1 ea, 0 Refill(s) Active 09/11/2014 [facility] Metformin hydrochloride 500 MG Oral Tablet 500 mg=1 tab, PO, BID, # 60 tab, 0 Refill(s) Active 09/11/2014 [facility] Blood Glucose Test Strips 1 box, MISC, BID-Before Meals, # 100 strip, 0 Refill(s) Active 09/11/2014 [facility] Acetaminophen 300 MG / Codeine Phosphate 30 MG Oral Tablet [Tylenol with Codeine #3] 2 tab, PO, Q4H, # 12 tab, 0 Refill(s) Active 09/11/2014 [facility] NPH Insulin, Human 100 UNT/ML Injectable Suspension [Novolin N] 25 unit, SUB-Q, BID, # 10 ml, 0 Refill(s) Active 09/11/2014 [facility] Zosyn 3.375 gm, 100 mL, Route: IVPB, Drug form: PDR/INJ, ABXQ8H, Dosing Weight 81.818, kg, CrCl >=20 ml/min infuse over 4 hours, Start date: 09/10/14 13:00:00, Duration: 30 day, Stop date: 10/10/14 5:00:00Notes: (Same as: Zosyn) Infuse over 4 hours. Activate and reconstitute before use. Dosing based on Piperacillin component No Longer Active 09/10/2014 [facility] Levemir 30 unit, 0.3 mL, Route: SUB-Q, Drug form: INJ, Daily, Dosing Weight 81.818, kg, Start date: 09/10/14 9:00:00, Stop date: 10/09/14 9:00:00Notes: Same as Levemir Do not hold insulin without contacting prescriber "single patient use only" No Longer Active 09/10/2014 [facility] Levemir 30 unit, 0.3 mL, Route: SUB-Q, Drug form: INJ, Bedtime, Dosing Weight 81.818, kg, Start date: 09/09/14 21:00:00, Stop date: 10/08/14 21:00:00Notes: Same as Levemir Do not hold insulin without contacting prescriber "single patient use only" No Longer Active 09/10/2014 [facility] Unasyn 3 gm, 1 ea, Route: IVPB, ABXQ6H, Dosing Weight 81.818, kg, Start date: 09/09/14 17:00:00, Duration: 30 day, Stop date: 10/09/14 11:00:00Notes: Dosing based on Ampicillin component (Same as: Unasyn) No Longer Active 09/09/2014 [facility] Acetaminophen 300 MG / Codeine Phosphate 30 MG Oral Tablet [Tylenol with Codeine #3] 2 tab, Route: PO, Drug Form: TAB, Dosing Weight 81.818, kg, Q4H, Start date: 09/08/14 12:00:00, Duration: 30 day, Stop date: 10/08/14 8:00:00Notes: Do not exceed 4gm/day of acetaminophen. (Same as: Tylenol with Codeine # 3) No Longer Active 09/08/2014 [facility] Fluzone Quadrivalent [id number] 0.5 ml, Route: IM, Drug Form: SUSP, Daily, Start date: 09/08/14 9:00:00, Duration: 1 doses or times, Stop date: 09/08/14 9:00:00Notes: (Same as: Fluzone Quadrivalent) Inactive 09/08/2014 [facility] Pneumovax 23 0.5 ml, Route: IM, Drug Form: INJ, Daily, Start date: 09/08/14 9:00:00, Duration: 1 doses or times, Stop date: 09/08/14 9:00:00Notes: (Same as: Pneumovax 23) Refrigerate Inactive 09/08/2014 [facility] Insulin, Aspart, Human 4 unit, 0.04 mL, Route: SUB-Q, Drug form: SOLN, Bedtime, Dosing Weight 81.818, kg, PRN Blood Glucose Results, Start date: 09/08/14 8:22:00, Duration: 30 day, Stop date: 10/08/14 8:21:00Notes: Roll in palms of hands gently; Do not shake vigorously. (Same as: NovoLOG) "single patient use only" Stable for 28 days at room temperature. Expires in days from Date No Longer Active 09/08/2014 [facility] Dextrose 50% Syringe 25 gm, 50 mL, Route: IVP, Drug Form: INJ, Dosing Weight 81.818, kg, PRN, PRN Blood Glucose Results, Start date: 09/08/14 8:22:00, Duration: 30 day, Stop date: 10/08/14 8:21:00 No Longer Active 09/08/2014 [facility] Glucagon 1 mg, Route: IM, Drug form: PDR/INJ, PRN, Dosing Weight 81.818, kg, PRN Blood Glucose Results, Start date: 09/08/14 8:22:00, Duration: 30 day, Stop date: 10/08/14 8:21:00 No Longer Active 09/08/2014 [facility] Vancomycin 1 gm, 200 mL, Route: IVPB, Drug form: INJ, ABXQ8H, Dosing Weight 81.818, kg, Start date: 09/07/14 22:00:00, Duration: 30 day, Stop date: 10/07/14 14:00:00 No Longer Active 09/08/2014 [facility] Calcium Chloride 0.0014 MEQ/ML / Potassium Chloride 0.004 MEQ/ML / Sodium Chloride 0.103 MEQ/ML / Sodium Lactate 0.028 MEQ/ML Injectable Solution 1,000 mL, Rate: 25 ml/hr, Infuse over: 40 hr, Route: IV, Dosing Weight 81.818 kg, Total Volume: 1,000, Start date: 09/07/14 9:35:00, Duration: 30 day, Stop date: 10/07/14 9:34:00 Inactive 09/07/2014 [facility] Risperidone 1 mg, 1 tab, Route: PO, Drug form: TAB, QAM, Dosing Weight 74.545, kg, Start date: 09/07/14 9:00:00, Duration: 30 day, Stop date: 10/06/14 9:00:00Notes: (Same as: Risperdal) No Longer Active 09/07/2014 [facility] pneumococcal capsular polysaccharide type 1 vaccine / pneumococcal capsular polysaccharide type 10A vaccine / pneumococcal capsular polysaccharide type 11A vaccine / pneumococcal capsular polysaccharide type 12F vaccine / pneumococcal capsular polysacchar 0.5 ml, Route: IM, Drug Form: INJ, Daily, Start date: 09/07/14 9:00:00, Duration: 1 doses or times, Stop date: 09/07/14 9:00:00Notes: (Same as: Pneumovax 23) Refrigerate Inactive 09/07/2014 [facility] Influenza Virus Vaccine, Inactivated Y-Agihcmvx-98 (H3N2)-like virus ([id number] [facility] [place] X-175C) strain / Influenza Virus Vaccine, Inactivated [id number]-Onlewcbs-55-2007, IVR-148 (H1N1) strain / Influenza Virus Vaccine, Inactivated, D-Lhrfhkk-[id number]-lik 0.5 ml, Route: IM, Drug Form: SUSP, Daily, Start date: 09/07/14 9:00:00, Duration: 1 doses or times, Stop date: 09/07/14 9:00:00Notes: (Same as: Fluzone Quadrivalent) Inactive 09/07/2014 [facility] Atropine 0.5 mg, 5 mL, Route: IVP, Drug form: INJ, PRN, Dosing Weight 81.818, kg, PRN Bradycardia, Start date: 09/06/14 23:44:00, Duration: 30 day, Stop date: 10/06/14 23:43:00, symptomatic bradycardia, HR No Longer Active 09/07/2014 [facility] Nitroglycerin 0.4 MG Sublingual Tablet 0.4 mg, 1 tab, Route: SL, Drug form: TAB, Q5Min, Dosing Weight 81.818, kg, PRN Chest Pain, Start date: 09/06/14 23:44:00, Duration: 30 day, Stop date: 10/06/14 23:43:00, Chest Pain,repeat Q5 minutes for total of 3 dosesNotes: (Same as:Nitroquick, Nitrostat) "Do Not Crush" Sublingual tablet No Longer Active 09/07/2014 [facility] Risperidone 3 mg, 3 tab, Route: PO, Drug form: TAB, QPM, Dosing Weight 74.545, kg, Start date: 09/06/14 22:40:00, Duration: 30 day, Stop date: 10/06/14 17:00:00Notes: (Same as: Risperdal) No Longer Active 09/07/2014 [facility] Sodium Chloride 0.154 MEQ/ML Injectable Solution 1,000 mL, 1,000 ml/hr, Infuse Over: 1 hr, Route: IV, 1,000, Drug form: INJ, ONCE, Priority: STAT, Dosing Weight 74.545 kg, Start date: 09/06/14 21:15:00, Duration: 1 doses or times, Stop date: 09/06/14 21:15:00 Inactive 09/07/2014 [facility] heparin, porcine 5,000 unit, 1 mL, Route: SUB-Q, Drug form: INJ, Q8H, Dosing Weight 74.545, kg, Priority: STAT, Start date: 09/06/14 21:15:00, Duration: 30 day, Stop date: 10/06/14 16:00:00Notes: porcine heparin No Longer Active 09/07/2014 [facility] Insulin, Aspart, Human 4 unit, 0.04 mL, Route: SUB-Q, Drug form: SOLN, TID-Before Meals, Dosing Weight 74.545, kg, PRN Blood Glucose Results, Start date: 09/06/14 21:15:00, Duration: 30 day, Stop date: 10/06/14 21:14:00Notes: Roll in palms of hands gently; Do not shake vigorously. (Same as: NovoLOG) "single patient use only" Stable for 28 days at room temperature. Expires in days from Date No Longer Active 09/07/2014 [facility] Dextrose 50% Syringe 12.5 gm, 25 mL, Route: IVP, Drug Form: INJ, Dosing Weight 74.545, kg, PRN, PRN Blood Glucose Results, Start date: 09/06/14 21:15:00, Duration: 30 day, Stop date: 10/06/14 21:14:00 No Longer Active 09/07/2014 [facility] Glucagon 1 mg, Route: IM, Drug form: PDR/INJ, PRN, Dosing Weight 74.545, kg, PRN Blood Glucose Results, Start date: 09/06/14 21:15:00, Duration: 30 day, Stop date: 10/06/14 21:14:00 No Longer Active 09/07/2014 [facility] Acetaminophen 650 mg, 2 tab, Route: PO, Drug form: TAB, Q4H, Dosing Weight 74.545, kg, PRN Pain 1-3/Temp > 100.4 F, Start date: 09/06/14 21:15:00, Duration: 30 day, Stop date: 10/06/14 21:14:00Notes: Do not exceed 4 gm/day. (Same as: Tylenol) No Longer Active 09/07/2014 [facility] Morphine 2 mg, 1 mL, Route: IVP, Drug form: INJ, Q3H, Dosing Weight 74.545, kg, PRN Pain Score 4-6, Start date: 09/06/14 21:15:00, Duration: 30 day, Stop date: 10/06/14 21:14:00Notes: (Same as:MORPhine Sulfate) No Longer Active 09/07/2014 [facility] Ondansetron 4 mg, 2 mL, Route: IVP, Drug form: INJ, Q8H, Dosing Weight 74.545, kg, PRN Nausea & Vomiting, Start date: 09/06/14 21:15:00, Duration: 30 day, Stop date: 10/06/14 21:14:00Notes: (Same as: Zofran) No Longer Active 09/07/2014 [facility] Zosyn 3.375 gm, 100 mL, Route: IVPB, Drug form: PDR/INJ, ABXQ8H, Dosing Weight 74.545, kg, Priority: STAT, Start date: 09/06/14 21:15:00, Duration: 30 day, Stop date: 10/06/14 12:00:00Notes: (Same as: Zosyn) Infuse over 4 hours. Activate and reconstitute before use. Dosing based on Piperacillin component No Longer Active 09/07/2014 [facility] Vancomycin 1 gm, 200 mL, Route: IVPB, Drug form: INJ, [id number], Dosing Weight 74.545, kg, Priority: STAT, Start date: 09/06/14 21:15:00, Duration: 30 day, Stop date: 10/06/14 10:00:00 No Longer Active 09/07/2014 [facility] Saline Flush 0.9% 10 ml, Route: IVP, Drug Form: INJ, Dosing Weight 74.545, kg, PRN, PRN Line Flush, Start date: 09/06/14 21:15:00, Duration: 30 day, Stop date: 10/06/14 21:14:00Notes: Same as: BD Posiflush Sterile No Longer Active 09/07/2014 [facility] Tylenol 650 mg, Route: PO, Drug form: TAB, ONCE, Dosing Weight 74.545, kg, Priority: STAT, Start date: 09/06/14 20:40:00, Stop date: 09/06/14 20:40:00 Inactive 09/07/2014 [facility] Insulin, Regular, Pork 7 unit, Route: IV, ONCE, Dosing Weight 74.545, kg, Priority: STAT, Start date: 09/06/14 20:01:00, Stop date: 09/06/14 20:01:00 Inactive 09/07/2014 [facility] risperidone 1 mg oral tablet 1 mg=1 tab, PO, QAM Active 09/07/2014 [facility] Risperdal 0 Refill(s) Inactive 09/07/2014 [facility] Sodium Chloride 0.154 MEQ/ML Injectable Solution 1,000 mL, 1,000 ml/hr, Infuse Over: 1 hr, Route: IV, ONCE, Priority: STAT, Dosing Weight 74.545 kg, Start date: 09/06/14 19:02:00, Duration: 1 doses or times, Stop date: 09/06/14 19:02:00 Inactive 09/07/2014 [facility] Zofran 4 mg, Route: IVP, Drug form: INJ, ONCE, Dosing Weight 74.545, kg, Priority: STAT, Start date: 09/06/14 19:00:00, Stop date: 09/06/14 19:00:00 Inactive 09/07/2014 [facility] Morphine 4 mg, Route: IVP, Drug form: INJ, ONCE, Dosing Weight 74.545, kg, Priority: STAT, Start date: 09/06/14 18:59:00, Stop date: 09/06/14 18:59:00 Inactive 09/07/2014 [facility] Vancomycin 1 gm, 200 mL, Route: IVPB, Drug form: INJ, ONCE, Dosing Weight 74.545, kg, Priority: STAT, Start date: 09/06/14 18:59:00, Stop date: 09/06/14 18:59:00 Inactive 09/07/2014 [facility] Zosyn 3.375 gm, 100 mL, Route: IVPB, Drug form: PDR/INJ, ONCE, Dosing Weight 74.545, kg, Priority: STAT, Start date: 09/06/14 18:59:00, Stop date: 09/06/14 18:59:00Notes: (Same as: Zosyn) Infuse over 4 hours. Activate and reconstitute before use. Dosing based on Piperacillin component Inactive 09/07/2014 [facility] Saline Flush 0.9% 10 mL, Route: IVP, Drug Form: INJ, Dosing Weight 74.545, kg, PRN, PRN Line Flush, Start date: 09/06/14 18:43:00, Duration: 30 day, Stop date: 10/06/14 18:42:00Notes: Same as: BD Posiflush Sterile Inactive 09/07/2014 [facility] Allergies, Adverse Reactions, Alerts Substance Category Reaction Severity Reaction type Status Date Reported Comments Source Immunizations Immunization Date Given Site Status Last Updated Comments Source influenza virus vaccine, inactivated 09/08/2014 Right Deltoid completed [facility] pneumococcal 23-valent vaccine 09/08/2014 Left Deltoid completed [facility] Results Order Name Results Value Reference Range Date Interpretation Comments Source IMMUNOLOGY C-REACTIVE PROTEIN 71.7 mg/L <=2.9 mg/L 09/11/2014 [facility] CHEM PANEL eGFR 104 mL/min/1.73m2 09/11/2014 1Result Comment: The eGFR is calculated using the CKD-EPI formula. In most young, healthy individuals the eGFR will be >90 mL/min/1.73m2. The eGFR declines with age. An eGFR of 60-89 may be normal in some populations, particularly the elderly, for whom the CKD-EPI formula has not been extensively validated. Use of the eGFR is not recommended in the following populations: Individuals with unstable creatinine concentrations, including patients and those with serious co-morbid conditions. Patients with extremes in muscle mass or diet. The data above are obtained from the National Kidney Disease Education Program (NKDEP) which additionally recommends that when the eGFR is used in patients with extremes of body mass index for purposes of drug dosing, the eGFR should be multiplied by the estimated BMI. [facility] CHEM PANEL Creatinine Lvl 0.9 mg/dL 0.5 - 1.4 09/11/2014 [facility] CHEM PANEL Sodium Lvl 138 meq/L 135 - 145 09/11/2014 [facility] CHEM PANEL BUN 11 mg/dL 7 - 22 09/11/2014 [facility] CHEM PANEL Glucose Lvl 214 mg/dL 70 - 99 09/11/2014 4Interpretive Data: Adult reference range values reflect the clinical guidelines of the [place] [employer]. [facility] CHEM PANEL Chloride Lvl 102 meq/L 95 - 109 09/11/2014 [facility] CHEM PANEL Calcium Lvl 8.4 mg/dL 8.5 - 10.5 09/11/2014 [facility] CHEM PANEL CO2 30 meq/L 24 - 32 09/11/2014 [facility] CHEM PANEL Potassium Lvl 3.7 meq/L 3.5 - 5.1 09/11/2014 [facility] CHEM PANEL AGAP 9.7 meq/L 10.0 - 20.0 09/11/2014 [facility] HEMATOLOGY Sed Rate 55 mm/h 0 - 15 09/11/2014 [facility] HEMATOLOGY Segs 62.0 % 45.0 - 75.0 09/11/2014 [facility] HEMATOLOGY Lymphocytes 18.5 % 20.0 - 40.0 09/11/2014 [facility] HEMATOLOGY Monocytes 8.9 % 2.0 - 12.0 09/11/2014 [facility] HEMATOLOGY Basophils # 0.1 K/CMM 0.0 - 0.2 09/11/2014 [facility] HEMATOLOGY Eosinophils # 0.8 K/CMM 0.0 - 0.5 09/11/2014 [facility] HEMATOLOGY Eosinophils 9.9 % 0.0 - 4.0 09/11/2014 [facility] HEMATOLOGY Segs-Bands # 5.0 K/CMM 1.5 - 8.1 09/11/2014 [facility] HEMATOLOGY Basophils 0.7 % 0.0 - 1.0 09/11/2014 [facility] HEMATOLOGY Monocytes # 0.7 K/CMM 0.0 - 0.8 09/11/2014 [facility] Lymphocytes # 1.5 K/CMM 1.0 - 5.5 09/11/2014 [facility] HEMATOLOGY MPV 7.7 fL 7.4 - 10.4 09/11/2014 [facility] MCHC 34.2 g/dL 32.0 - 36.0 09/11/2014 [facility] HEMATOLOGY Platelet 380 K/CMM 133 - 450 09/11/2014 [facility] HEMATOLOGY RDW 12.3 % 11.5 - 14.5 09/11/2014 [facility] MCH 28.7 pg 27.0 - 31.0 09/11/2014 [facility] HEMATOLOGY MCV 83.9 fL 80.0 - 94.0 09/11/2014 [facility] HEMATOLOGY Hgb 12.6 g/dL 14.0 - 18.0 09/11/2014 [facility] HEMATOLOGY Hct 36.8 % 42.0 - 54.0 09/11/2014 [facility] HEMATOLOGY RBC 4.39 M/CMM 4.70 - 6.10 09/11/2014 [facility] HEMATOLOGY WBC 8.0 K/CMM 3.7 - 10.4 09/11/2014 [facility] ELECTROLYTES Chloride Lvl 102 meq/L 95 - 109 09/10/2014 [facility] ELECTROLYTES Potassium Lvl 3.6 meq/L 3.5 - 5.1 09/10/2014 [facility] ELECTROLYTES Sodium Lvl 139 meq/L 135 - 145 09/10/2014 [facility] ELECTROLYTES eGFR 109 mL/min/1.73m2 09/10/2014 2Result Comment: The eGFR is calculated using the CKD-EPI formula. In most young, healthy individuals the eGFR will be >90 mL/min/1.73m2. The eGFR declines with age. An eGFR of 60-89 may be normal in some populations, particularly the elderly, for whom the CKD-EPI formula has not been extensively validated. Use of the eGFR is not recommended in the following populations: Individuals with unstable creatinine concentrations, including patients and those with serious co-morbid conditions. Patients with extremes in muscle mass or diet. The data above are obtained from the National Kidney Disease Education Program (NKDEP) which additionally recommends that when the eGFR is used in patients with extremes of body mass index for purposes of drug dosing, the eGFR should be multiplied by the estimated BMI. [facility] ELECTROLYTES Glucose Lvl 224 mg/dL 70 - 99 09/10/2014 5Interpretive Data: Adult reference range values reflect the clinical guidelines of the [place] [employer]. [facility] ELECTROLYTES Creatinine Lvl 0.8 mg/dL 0.5 - 1.4 09/10/2014 [facility] ELECTROLYTES Calcium Lvl 8.0 mg/dL 8.5 - 10.5 09/10/2014 [facility] ELECTROLYTES BUN 10 mg/dL 7 - 22 09/10/2014 [facility] ELECTROLYTES CO2 30 meq/L 24 - 32 09/10/2014 [facility] ELECTROLYTES AGAP 10.6 meq/L 10.0 - 20.0 09/10/2014 [facility] HEMATOLOGY MPV 7.5 fL 7.4 - 10.4 09/10/2014 [facility] MCHC 34.3 g/dL 32.0 - 36.0 09/10/2014 [facility] MCH 28.8 pg 27.0 - 31.0 09/10/2014 [facility] MCV 83.9 fL 80.0 - 94.0 09/10/2014 [facility] RDW 12.2 % 11.5 - 14.5 09/10/2014 [facility] HEMATOLOGY Platelet 312 K/CMM 133 - 450 09/10/2014 [facility] Hgb 11.9 g/dL 14.0 - 18.0 09/10/2014 [facility] HEMATOLOGY Hct 34.7 % 42.0 - 54.0 09/10/2014 [facility] WBC 8.5 K/CMM 3.7 - 10.4 09/10/2014 [facility] RBC 4.14 M/CMM 4.70 - 6.10 09/10/2014 [facility] HEMATOLOGY Monocytes # 0.7 K/CMM 0.0 - 0.8 09/10/2014 [facility] HEMATOLOGY Eosinophils # 0.7 K/CMM 0.0 - 0.5 09/10/2014 [facility] HEMATOLOGY Basophils # 0.1 K/CMM 0.0 - 0.2 09/10/2014 [facility] Segs-Bands # 5.5 K/CMM 1.5 - 8.1 09/10/2014 [facility] Lymphocytes # 1.5 K/CMM 1.0 - 5.5 09/10/2014 [facility] Eosinophils 8.5 % 0.0 - 4.0 09/10/2014 [facility] Basophils 0.7 % 0.0 - 1.0 09/10/2014 [facility] Lymphocytes 17.3 % 20.0 - 40.0 09/10/2014 [facility] Monocytes 8.7 % 2.0 - 12.0 09/10/2014 [facility] Segs 64.8 % 45.0 - 75.0 09/10/2014 [facility] ELECTROLYTES AGAP 10.4 meq/L 10.0 - 20.0 09/09/2014 [facility] ELECTROLYTES eGFR 109 mL/min/1.73m2 09/09/2014 3Result Comment: The eGFR is calculated using the CKD-EPI formula. In most young, healthy individuals the eGFR will be >90 mL/min/1.73m2. The eGFR declines with age. An eGFR of 60-89 may be normal in some populations, particularly the elderly, for whom the CKD-EPI formula has not been extensively validated. Use of the eGFR is not recommended in the following populations: Individuals with unstable creatinine concentrations, including patients and those with serious co-morbid conditions. Patients with extremes in muscle mass or diet. The data above are obtained from the National Kidney Disease Education Program (NKDEP) which additionally recommends that when the eGFR is used in patients with extremes of body mass index for purposes of drug dosing, the eGFR should be multiplied by the estimated BMI. [facility] ELECTROLYTES Calcium Lvl 7.8 mg/dL 8.5 - 10.5 09/09/2014 [facility] ELECTROLYTES Creatinine Lvl 0.8 mg/dL 0.5 - 1.4 09/09/2014 [facility] ELECTROLYTES Sodium Lvl 137 meq/L 135 - 145 09/09/2014 [facility] ELECTROLYTES Potassium Lvl 3.4 meq/L 3.5 - 5.1 09/09/2014 [facility] ELECTROLYTES Chloride Lvl 102 meq/L 95 - 109 09/09/2014 [facility] ELECTROLYTES CO2 28 meq/L 24 - 32 09/09/2014 [facility] ELECTROLYTES BUN 10 mg/dL 7 - 22 09/09/2014 [facility] ELECTROLYTES Glucose Lvl 246 mg/dL 70 - 99 09/09/2014 6Interpretive Data: Adult reference range values reflect the clinical guidelines of the [place] [employer]. [facility] HEMATOLOGY Eosinophils # 0.4 K/CMM 0.0 - 0.5 09/09/2014 [facility] HEMATOLOGY Basophils # 0.1 K/CMM 0.0 - 0.2 09/09/2014 [facility] HEMATOLOGY Monocytes # 1.0 K/CMM 0.0 - 0.8 09/09/2014 [facility] HEMATOLOGY Segs-Bands # 7.3 K/CMM 1.5 - 8.1 09/09/2014 [facility] HEMATOLOGY Eosinophils 3.9 % 0.0 - 4.0 09/09/2014 [facility] HEMATOLOGY Basophils 0.7 % 0.0 - 1.0 09/09/2014 [facility] HEMATOLOGY Lymphocytes # 1.2 K/CMM 1.0 - 5.5 09/09/2014 [facility] HEMATOLOGY Monocytes 9.6 % 2.0 - 12.0 09/09/2014 [facility] HEMATOLOGY Lymphocytes 12.0 % 20.0 - 40.0 09/09/2014 [facility] HEMATOLOGY Segs 73.8 % 45.0 - 75.0 09/09/2014 [facility] HEMATOLOGY MPV 7.6 fL 7.4 - 10.4 09/09/2014 [facility] HEMATOLOGY Platelet 284 K/CMM 133 - 450 09/09/2014 [facility] MCH 28.4 pg 27.0 - 31.0 09/09/2014 [facility] HEMATOLOGY Hct 34.3 % 42.0 - 54.0 09/09/2014 [facility] HEMATOLOGY MCV 83.8 fL 80.0 - 94.0 09/09/2014 [facility] HEMATOLOGY Hgb 11.6 g/dL 14.0 - 18.0 09/09/2014 [facility] HEMATOLOGY MCHC 33.9 g/dL 32.0 - 36.0 09/09/2014 [facility] HEMATOLOGY RDW 11.8 % 11.5 - 14.5 09/09/2014 [facility] HEMATOLOGY WBC 9.9 K/CMM 3.7 - 10.4 09/09/2014 [facility] HEMATOLOGY RBC 4.09 M/CMM 4.70 - 6.10 09/09/2014 [facility] Chest 1view Chest 1view Portable chest: The PICC line tip is in good position at the cavoatrial junction. The cardio mediastinal silhouette is within normal limits. The lungs and pleural spaces are clear. SL:13 09/07/2014 - - Read by: Earl Antoine MD Dictated Date/time: 09/07/14 15:51 Electronically Signed by: Earl Antoine MD 09/07/14 15:52 FINAL REPORT [facility] CHEM PANEL Globulin 5.1 g/dL 2.0 - 4.0 09/07/2014 [facility] CHEM PANEL A/G Ratio 0.5 0.7 - 1.6 09/07/2014 [facility] CHEM PANEL Alk Phos 110 unit/L 39 - 136 09/07/2014 [facility] CHEM PANEL Bili Total 0.4 mg/dL 0.2 - 1.3 09/07/2014 [facility] CHEM PANEL Total Protein 7.4 g/dL 6.4 - 8.4 09/07/2014 [facility] CHEM PANEL ALT 40 unit/L 0 - 65 09/07/2014 [facility] CHEM PANEL AST 24 unit/L 0 - 37 09/07/2014 [facility] CHEM PANEL Albumin Lvl 2.3 g/dL 3.5 - 5.0 09/07/2014 [facility] CHEM PANEL B/C Ratio 16 6 - 25 09/07/2014 [facility] SPECIAL CHEMISTRY Hgb A1C 12.4 % <=5.6 % 09/07/2014 [facility] CHEM PANEL Lactic Acid Lvl 1.4 mMol/L 0.5 - 2.2 09/07/2014 [facility] CHEM PANEL Ketone Quantitative 1.99 mmol/L <=0.27 mmol/L 09/07/2014 [facility] HEMATOLOGY Sed Rate 89 mm/h 0 - 15 09/07/2014 [facility] IMMUNOLOGY CDC HIV 4th GEN Negative (09/06/14 7:13 PM) Negative 09/07/2014 [facility] IMMUNOLOGY C-REACTIVE PROTEIN >38,000 (09/06/14 7:13 PM) <=2.9 09/07/2014 [facility] Foot w/wo contrast MRI Foot w/wo contrast MRI Examination: MRI of the left foot with and without contrast History: Pain and swelling Comparison: Plain films of the left foot from 09/06/2014. TECHNIQUE: Multiplanar, multisequence magnetic resonance imaging of the left forefoot was performed with and without administration of intravenous gadolinium contrast. Findings: There is ulceration of the plantar medial soft tissues of the first toe. Hypointense T1/hyperintense STIR marrow signal abnormality in the underlying distal and proximal phalanges of the first toe are seen with trace amount of fluid within the interphalangeal joint and numerous overlying foci of soft tissue gas. Circumferential edema and enhancement of the soft tissues of the first toe is seen with areas of devitalized soft tissue in the distal tip. The remaining osseous structures are intact. There is no definitive rim- enhancing fluid collection to suggest abscess. IMPRESSION: Findings compatible with osteomyelitis of the distal and proximal phalanges of the first toe. SL: 12 09/07/2014 - - Read by: Jian Paris MD Dictated Date/time: 09/07/14 07:06 Electronically Signed by: Jian Paris MD 09/07/14 07:11 FINAL REPORT [facility] Foot series Foot series Left foot series, Sep 06, 2014 07:15:00 PM CLINICAL HISTORY: L big toe swelling and erythema, r/o fx vs changes for osteo ; Erythema TECHNIQUE: Routine PA, lateral, and oblique views of the left foot were obtained. COMPARISON: None FINDINGS: Great toe distal phalangeal segment proximal metaphyseal fracture is present. Severe great toe soft tissue swelling with subcutaneous emphysema is present. Overlying also/wound is present. No radioopaque foreign body is present. IMPRESSION: Great toe distal phalangeal segment proximal metaphyseal fracture, with severe surrounding soft tissue swelling and subcutaneous emphysema. If no open wound is present, then anaerobic infection is suggested. SL: 14 09/06/2014 - - Read by: Karina Austin MD Dictated Date/time: 09/06/14 19:34 Electronically Signed by: Karina Austin MD 09/06/14 19:37 FINAL REPORT [facility] Vital Signs Vital Sign Value Date Comments Source Heart Rate 92 09/11/2014 [facility] Systolic (mm Hg) 124 09/11/2014 [facility] Respitory Rate 18 09/11/2014 [facility] Temperature Oral (F) 97.9 F 09/11/2014 [facility] Diastolic (mm Hg) 81 09/11/2014 [facility] Heart Rate 93 09/11/2014 [facility] Temperature Oral (F) 98.8 F 09/11/2014 [facility] Respitory Rate 18 09/11/2014 [facility] Systolic (mm Hg) 112 09/11/2014 [facility] Diastolic (mm Hg) 75 09/11/2014 [facility] Temperature Oral (F) 97.9 F 09/11/2014 [facility] Heart Rate 86 09/11/2014 [facility] Diastolic (mm Hg) 80 09/11/2014 [facility] Respitory Rate 18 09/11/2014 [facility] Systolic (mm Hg) 122 09/11/2014 [facility] Weight 81.818 09/07/2014 [facility] Height 167.64 cm 09/07/2014 [facility] BMI Calculated 29.11 09/07/2014 [facility] Weight 74.545 09/06/2014 [facility] Height 165.1 cm 09/06/2014 [facility] BMI Calculated 27.35 09/06/2014 [facility] Encounters Location Location Details Encounter Type Encounter Number Reason For Visit Attending Provider ADM Date DC Date Status Source [facility] Inpatient [id number] Jarek Gio 09/06/2014 09/12/2014 [facility] Procedures Procedure Code Date Perfomer Comments Source
--- OUTSIDE RECORDS SUMMARY | 2018-08-31 09:15 | XMS REPORT | Summary of Care ---
Author Organization Unknown Address Unknown Phone Unavailable Encounter HQ Camila(NOEL) [id number] Date(s): 09/06/14 - 09/11/[address] [facility] [id number] [address] Discharge Disposition: Home Physician Attending: Jarek Powers MD Physician Admitting: Jarek Powers MD Reason for Visit EXTENSIVE LEFT BIG TOE CELLULITIS AND NECROSIS R/O OSTE Vital Signs 1 2 3 Most recent to oldest [Reference Range]: 167.64 cm (09/06/14 10:10 PM) 165.1 cm (09/06/14 5:55 PM) Height 97.9 DegF (09/11/14 3:58 PM) 98.8 DegF (09/11/14 11:53 AM) 97.9 DegF (09/11/14 8:00 AM) Temperature Oral [96.4-99.1 DegF] 124 mmHg (09/11/14 3:58 PM) 112 mmHg (09/11/14 11:53 AM) 122 mmHg (09/11/14 8:00 AM) Systolic Blood Pressure [90-140 mmHg] 81 mmHg (09/11/14 3:58 PM) 75 mmHg (09/11/14 11:53 AM) 80 mmHg (09/11/14 8:00 AM) Diastolic Blood Pressure [60-90 mmHg] 18 BRMIN (09/11/14 3:58 PM) 18 BRMIN (09/11/14 11:53 AM) 18 BRMIN (09/11/14 8:00 AM) Respiratory Rate [14-20 BRMIN] 92 bpm (09/11/14 3:58 PM) 93 bpm (09/11/14 11:53 AM) 86 bpm (09/11/14 8:00 AM) Peripheral Pulse Rate [60-100 bpm] 81.818 kg (09/06/14 10:10 PM) 74.545 kg (09/06/14 5:55 PM) Weight 29.11 m2 (09/06/14 10:10 PM) 27.35 m2 (09/06/14 5:55 PM) Body Mass Index Problem List Condition Effective Dates Status Health Status Informant Diabetes(Confirmed) Active Hypertension(Confirm Active ed) Schizophrenia(2011 Resolved med) Allergies, Adverse Reactions, Alerts Substance Reaction Severity Status NKDA Active Medications acetaminophen 650 mg, 2 tab, Route: PO, Drug form: TAB, Q4H, Dosing Weight 74.545, kg, PRN Nallely n 1-3/Temp > 100.4 F, Start date: 09/06/14 21:15:00, Duration: 30 day, Stop date: 10/06/14 21:14:00 Notes: Do not exceed 4 gm/day. (Same as: Tylenol) Start Date: 09/06/14 Stop Date: 09/11/14 Status: Discontinued atropine 0.5 mg, 5 mL, Route: IVP, Drug form: INJ, PRN, Dosing Weight 81.818, kg, PRN Bra dycardia, Start date: 09/06/14 23:44:00, Duration: 30 day, Stop date: 10/06/14 2 3:43:00, symptomatic bradycardia, HR <40/minute Start Date: 09/06/14 Stop Date: 09/11/14 Status: Discontinued Augmentin 875 mg oral tablet 2 tab, PO, Q12H, # 40 tab, 0 Refill(s) Start Date: 09/11/14 Stop Date: 09/21/14 Status: Ordered Blood Glucose Monitor 1 ea, MISC, Daily, Use as directed., # 1 ea, 0 Refill(s) Special Instructions: Use as directed. Start Date: 09/11/14 Status: Ordered Blood Glucose Test Strips 1 box, MISC, BID-Before Meals, # 100 strip, 0 Refill(s) Start Date: 09/11/14 Status: Ordered Dextrose 50% Syringe 25 gm, 50 mL, Route: IVP, Drug Form: INJ, Dosing Weight 81.818, kg, PRN, PRN Blo od Glucose Results, Start date: 09/08/14 8:22:00, Duration: 30 day, Stop date: 12/09/13 8:21:00 Start Date: 09/08/14 Stop Date: 09/11/14 Status: Discontinued Dextrose 50% Syringe 12.5 gm, 25 mL, Route: IVP, Drug Form: INJ, Dosing Weight 81.818, kg, PRN, PRN B lood Glucose Results, Start date: 09/08/14 8:22:00, Duration: 30 day, Stop date: 10/08/14 8:21:00 Start Date: 09/08/14 Stop Date: 09/11/14 Status: Discontinued Dextrose 50% Syringe 12.5 gm, 25 mL, Route: IVP, Drug Form: INJ, Dosing Weight 74.545, kg, PRN, PRN B lood Glucose Results, Start date: 09/06/14 21:15:00, Duration: 30 day, Stop date : 10/06/14 21:14:00 Start Date: 09/06/14 Stop Date: 09/08/14 Status: Discontinued Dextrose 50% Syringe 25 gm, 50 mL, Route: IVP, Drug Form: INJ, Dosing Weight 74.545, kg, PRN, PRN Blo od Glucose Results, Start date: 09/06/14 21:15:00, Duration: 30 day, Stop date: 10/06/14 21:14:00 Start Date: 09/06/14 Stop Date: 09/08/14 Status: Discontinued Fluzone Quadrivalent [id number] 0.5 ml, Route: IM, Drug Form: SUSP, Daily, Start date: 09/08/14 9:00:00, Duratio n: 1 doses or times, Stop date: 09/08/14 9:00:00 Notes: (Same as: Fluzone Quadrivalent) Start Date: 09/08/14 Stop Date: 09/08/14 Status: Completed glucagon 1 mg, Route: IM, Drug form: PDR/INJ, PRN, Dosing Weight 81.818, kg, PRN Blood Gl ucose Results, Start date: 09/08/14 8:22:00, Duration: 30 day, Stop date: 8:21:00 Start Date: 09/08/14 Stop Date: 09/11/14 Status: Discontinued glucagon 1 mg, Route: IM, Drug form: PDR/INJ, PRN, Dosing Weight 74.545, kg, PRN Blood Gl ucose Results, Start date: 09/06/14 21:15:00, Duration: 30 day, Stop date: 10/06 21:14:00 Start Date: 09/06/14 Stop Date: 09/08/14 Status: Discontinued Glucose Control Solution 1 ea, MISC, Daily, # 1 ea, 0 Refill(s) Start Date: 09/11/14 Status: Ordered heparin 5,000 unit, 1 mL, Route: SUB-Q, Drug form: INJ, Q8H, Dosing Weight 74.545, kg, P riority: STAT, Start date: 09/06/14 21:15:00, Duration: 30 day, Stop date: 10/06 16:00:00 Notes: porcine heparin Start Date: 09/06/14 Stop Date: 09/11/14 Status: Discontinued influenza virus vaccine, inactivated 0.5 ml, Route: IM, Drug Form: SUSP, Daily, Start date: 09/07/14 9:00:00, Duratio n: 1 doses or times, Stop date: 09/07/14 9:00:00 Notes: (Same as: Fluzone Quadrivalent) Start Date: 09/07/14 Stop Date: 09/07/14 Status: Completed insulin aspart 4 unit, 0.04 mL, Route: SUB-Q, Drug form: SOLN, Bedtime, Dosing Weight 81.818, k g, PRN Blood Glucose Results, Start date: 09/08/14 8:22:00, Duration: 30 day, St op date: 10/08/14 8:21:00 Notes: Roll in palms of hands gently; Do not shake vigorously. (Same as: NovoLO G)"single patient use only" Stable for 28 days at room temperature.Expires in _ ____ days from Date Start Date: 09/08/14 Stop Date: 09/11/14 Status: Discontinued insulin aspart 3 unit, 0.03 mL, Route: SUB-Q, Drug form: SOLN, Bedtime, Dosing Weight 81.818, k g, PRN Blood Glucose Results, Start date: 09/08/14 8:22:00, Duration: 30 day, St op date: 10/08/14 8:21:00 Notes: Roll in palms of hands gently; Do not shake vigorously. (Same as: NovoLO G)"single patient use only" Stable for 28 days at room temperature.Expires in _ ____ days from Date Start Date: 09/08/14 Stop Date: 09/11/14 Status: Discontinued insulin aspart 2 unit, 0.02 mL, Route: SUB-Q, Drug form: SOLN, Bedtime, Dosing Weight 81.818, k g, PRN Blood Glucose Results, Start date: 09/08/14 8:22:00, Duration: 30 day, St op date: 10/08/14 8:21:00 Notes: Roll in palms of hands gently; Do not shake vigorously. (Same as: NovoLO G)"single patient use only" Stable for 28 days at room temperature.Expires in _ ____ days from Date Start Date: 09/08/14 Stop Date: 09/11/14 Status: Discontinued insulin aspart 12 unit, 0.12 mL, Route: SUB-Q, Drug form: SOLN, TID-Before Meals, Dosing Weight 81.818, kg, PRN Blood Glucose Results, Start date: 09/08/14 8:22:00, Duration: 30 day, Stop date: 10/08/14 8:21:00 Notes: Roll in palms of hands gently; Do not shake vigorously. (Same as: NovoLO G)"single patient use only" Stable for 28 days at room temperature.Expires in _ ____ days from Date Start Date: 09/08/14 Stop Date: 09/11/14 Status: Discontinued insulin aspart 1 unit, 0.01 mL, Route: SUB-Q, Drug form: SOLN, Bedtime, Dosing Weight 81.818, k g, PRN Blood Glucose Results, Start date: 09/08/14 8:22:00, Duration: 30 day, St op date: 10/08/14 8:21:00 Notes: Roll in palms of hands gently; Do not shake vigorously. (Same as: NovoLO G)"single patient use only" Stable for 28 days at room temperature.Expires in _ ____ days from Date Start Date: 09/08/14 Stop Date: 09/11/14 Status: Discontinued insulin aspart 3 unit, 0.03 mL, Route: SUB-Q, Drug form: SOLN, TID-Before Meals, Dosing Weight 81.818, kg, PRN Blood Glucose Results, Start date: 09/08/14 8:22:00, Duration: 3 0 day, Stop date: 10/08/14 8:21:00 Notes: Roll in palms of hands gently; Do not shake vigorously. (Same as: NovoLO G)"single patient use only" Stable for 28 days at room temperature.Expires in _ ____ days from Date Start Date: 09/08/14 Stop Date: 09/11/14 Status: Discontinued insulin aspart 15 unit, 0.15 mL, Route: SUB-Q, Drug form: SOLN, TID-Before Meals, Dosing Weight 81.818, kg, PRN Blood Glucose Results, Start date: 09/08/14 8:22:00, Duration: 30 day, Stop date: 10/08/14 8:21:00 Notes: Roll in palms of hands gently; Do not shake vigorously. (Same as: NovoLO G)"single patient use only" Stable for 28 days at room temperature.Expires in _ ____ days from Date Start Date: 09/08/14 Stop Date: 09/11/14 Status: Discontinued insulin aspart 9 unit, 0.09 mL, Route: SUB-Q, Drug form: SOLN, TID-Before Meals, Dosing Weight 81.818, kg, PRN Blood Glucose Results, Start date: 09/08/14 8:22:00, Duration: 3 0 day, Stop date: 10/08/14 8:21:00 Notes: Roll in palms of hands gently; Do not shake vigorously. (Same as: NovoLO G)"single patient use only" Stable for 28 days at room temperature.Expires in _ ____ days from Date Start Date: 09/08/14 Stop Date: 09/11/14 Status: Discontinued insulin aspart 6 unit, 0.06 mL, Route: SUB-Q, Drug form: SOLN, TID-Before Meals, Dosing Weight 81.818, kg, PRN Blood Glucose Results, Start date: 09/08/14 8:22:00, Duration: 3 0 day, Stop date: 10/08/14 8:21:00 Notes: Roll in palms of hands gently; Do not shake vigorously. (Same as: NovoLO G)"single patient use only" Stable for 28 days at room temperature.Expires in _ ____ days from Date Start Date: 09/08/14 Stop Date: 09/11/14 Status: Discontinued insulin aspart 4 unit, 0.04 mL, Route: SUB-Q, Drug form: SOLN, TID-Before Meals, Dosing Weight 74.545, kg, PRN Blood Glucose Results, Start date: 09/06/14 21:15:00, Duration: 30 day, Stop date: 10/06/14 21:14:00 Notes: Roll in palms of hands gently; Do not shake vigorously. (Same as: NovoLO G)"single patient use only" Stable for 28 days at room temperature.Expires in _ ____ days from Date Start Date: 09/06/14 Stop Date: 09/08/14 Status: Discontinued insulin aspart 5 unit, 0.05 mL, Route: SUB-Q, Drug form: SOLN, TID-Before Meals, Dosing Weight 74.545, kg, PRN Blood Glucose Results, Start date: 09/06/14 21:15:00, Duration: 30 day, Stop date: 10/06/14 21:14:00 Notes: Roll in palms of hands gently; Do not shake vigorously. (Same as: NovoLO G)"single patient use only" Stable for 28 days at room temperature.Expires in _ ____ days from Date Start Date: 09/06/14 Stop Date: 09/08/14 Status: Discontinued insulin aspart 2 unit, 0.02 mL, Route: SUB-Q, Drug form: SOLN, TID-Before Meals, Dosing Weight 74.545, kg, PRN Blood Glucose Results, Start date: 09/06/14 21:15:00, Duration: 30 day, Stop date: 10/06/14 21:14:00 Notes: Roll in palms of hands gently; Do not shake vigorously. (Same as: NovoLO G)"single patient use only" Stable for 28 days at room temperature.Expires in _ ____ days from Date Start Date: 09/06/14 Stop Date: 09/08/14 Status: Discontinued insulin aspart 1 unit, 0.01 mL, Route: SUB-Q, Drug form: SOLN, TID-Before Meals, Dosing Weight 74.545, kg, PRN Blood Glucose Results, Start date: 09/06/14 21:15:00, Duration: 30 day, Stop date: 10/06/14 21:14:00 Notes: Roll in palms of hands gently; Do not shake vigorously. (Same as: NovoLO G)"single patient use only" Stable for 28 days at room temperature.Expires in _ ____ days from Date Start Date: 09/06/14 Stop Date: 09/08/14 Status: Discontinued insulin aspart 3 unit, 0.03 mL, Route: SUB-Q, Drug form: SOLN, TID-Before Meals, Dosing Weight 74.545, kg, PRN Blood Glucose Results, Start date: 09/06/14 21:15:00, Duration: 30 day, Stop date: 10/06/14 21:14:00 Notes: Roll in palms of hands gently; Do not shake vigorously. (Same as: NovoLO G)"single patient use only" Stable for 28 days at room temperature.Expires in _ ____ days from Date Start Date: 09/06/14 Stop Date: 09/08/14 Status: Discontinued Insulin regular 7 unit, Route: IV, ONCE, Dosing Weight 74.545, kg, Priority: STAT, Start date: 11/06/13 20:01:00, Stop date: 09/06/14 20:01:00 Start Date: 09/06/14 Stop Date: 09/06/14 Status: Completed Insulin Syringes (U 100) 1 syr, SUB-Q, ONCALL, # 100 syr, 0 Refill(s) Start Date: 09/11/14 Status: Ordered Lactated Ringers Injection IV 1,000 mL 1,000 mL, Rate: 25 ml/hr, Infuse over: 40 hr, Route: IV, Dosing Weight 81.818 kg , Total Volume: 1,000, Start date: 09/07/14 9:35:00, Duration: 30 day, Stop date : 10/07/14 9:34:00 Start Date: 09/07/14 Stop Date: 09/07/14 Status: Discontinued Lancets 1 box, MISC, Daily, # 1 box, 0 Refill(s) Start Date: 09/11/14 Status: Ordered Levemir 30 unit, 0.3 mL, Route: SUB-Q, Drug form: INJ, Daily, Dosing Weight 81.818, kg, Start date: 09/10/14 9:00:00, Stop date: 10/09/14 9:00:00 Notes: Same as LevemirDo not hold insulin without contacting prescriber "single patient use only" Start Date: 09/10/14 Stop Date: 09/11/14 Status: Discontinued Levemir 30 unit, 0.3 mL, Route: SUB-Q, Drug form: INJ, Bedtime, Dosing Weight 81.818, kg , Start date: 09/09/14 21:00:00, Stop date: 10/08/14 21:00:00 Notes: Same as LevemirDo not hold insulin without contacting prescriber "single patient use only" Start Date: 09/09/14 Stop Date: 09/11/14 Status: Discontinued metFORMIN 500 mg oral tablet 500 mg, 1 tab, Route: PO, Drug form: TAB, BID, Dosing Weight 81.818, kg, Start d ate: 09/11/14 17:00:00, Duration: 30 day, Stop date: 10/11/14 9:00:00 Notes: (Same as: Glucophage) Take with meal Start Date: 09/11/14 Stop Date: 09/11/14 Status: Discontinued metFORMIN 500 mg oral tablet 500 mg=1 tab, PO, BID, # 60 tab, 0 Refill(s) Start Date: 09/11/14 Status: Ordered morphine Sulfate 2 mg, 1 mL, Route: IVP, Drug form: INJ, Q3H, Dosing Weight 74.545, kg, PRN Pain Score 4-6, Start date: 09/06/14 21:15:00, Duration: 30 day, Stop date: 10/06/14 21:14:00 Notes: (Same as:MORPhine Sulfate) Start Date: 09/06/14 Stop Date: 09/11/14 Status: Discontinued morphine Sulfate 4 mg, Route: IVP, Drug form: INJ, ONCE, Dosing Weight 74.545, kg, Priority: STAT , Start date: 09/06/14 18:59:00, Stop date: 09/06/14 18:59:00 Start Date: 09/06/14 Stop Date: 09/06/14 Status: Completed nitroglycerin 0.4 mg sublingual tablet 0.4 mg, 1 tab, Route: SL, Drug form: TAB, Q5Min, Dosing Weight 81.818, kg, PRN C hest Pain, Start date: 09/06/14 23:44:00, Duration: 30 day, Stop date: 10/06/14 23:43:00, Chest Pain,repeat Q5 minutes for total of 3 doses Notes: (Same as:Nitroquick, Nitrostat)"Do Not Crush" Sublingual tablet Start Date: 09/06/14 Stop Date: 09/11/14 Status: Discontinued NovoLIN N 100 units/mL 25 unit, SUB-Q, BID, # 10 ml, 0 Refill(s) Start Date: 09/11/14 Status: Ordered NS (Bolus) IV 1,000 mL, 1,000 ml/hr, Infuse Over: 1 hr, Route: IV, 1,000, Drug form: INJ, ONCE , Priority: STAT, Dosing Weight 74.545 kg, Start date: 09/06/14 21:15:00, Durati on: 1 doses or times, Stop date: 09/06/14 21:15:00 Start Date: 09/06/14 Stop Date: 09/06/14 Status: Completed NS (Bolus) IV 1,000 mL, 1,000 ml/hr, Infuse Over: 1 hr, Route: IV, 1,000, Drug form: INJ, ONCE , Priority: STAT, Dosing Weight 74.545 kg, Start date: 09/06/14 21:15:00, Durati on: 1 doses or times, Stop date: 09/06/14 21:15:00 Start Date: 09/06/14 Stop Date: 09/06/14 Status: Completed ondansetron 4 mg, 2 mL, Route: IVP, Drug form: INJ, Q8H, Dosing Weight 74.545, kg, PRN Nause a & Vomiting, Start date: 09/06/14 21:15:00, Duration: 30 day, Stop date: 10/06/14 21:14:00 Notes: (Same as: Zofran) Start Date: 09/06/14 Stop Date: 09/11/14 Status: Discontinued piperacillin-tazobactam 3.375 gm, 100 mL, Route: IVPB, Drug form: PDR/INJ, ABXQ8H, Dosing Weight 74.545, kg, Priority: STAT, Start date: 09/06/14 21:15:00, Duration: 30 day, Stop date: 10/06/14 12:00:00 Notes: (Same as: Zosyn)Infuse over 4 hours. Activate and reconstitute before us e. Dosing based on Piperacillin component Start Date: 09/06/14 Stop Date: 09/09/14 Status: Discontinued piperacillin-tazobactam 3.375 gm, 100 mL, Route: IVPB, Drug form: PDR/INJ, ONCE, Dosing Weight 74.545, k g, Priority: STAT, Start date: 09/06/14 18:59:00, Stop date: 09/06/14 18:59:00 Notes: (Same as: Zosyn)Infuse over 4 hours. Activate and reconstitute before us e. Dosing based on Piperacillin component Start Date: 09/06/14 Stop Date: 09/06/14 Status: Completed pneumococcal 23-valent vaccine 0.5 ml, Route: IM, Drug Form: INJ, Daily, Start date: 09/07/14 9:00:00, Duration : 1 doses or times, Stop date: 09/07/14 9:00:00 Notes: (Same as: Pneumovax 23) Refrigerate Start Date: 09/07/14 Stop Date: 09/07/14 Status: Completed Pneumovax 23 0.5 ml, Route: IM, Drug Form: INJ, Daily, Start date: 09/08/14 9:00:00, Duration : 1 doses or times, Stop date: 09/08/14 9:00:00 Notes: (Same as: Pneumovax 23) Refrigerate Start Date: 09/08/14 Stop Date: 09/08/14 Status: Completed Risperdal 0 Refill(s) Start Date: 09/06/14 Stop Date: 09/06/14 Status: Completed risperidone 3 mg, 3 tab, Route: PO, Drug form: TAB, QPM, Dosing Weight 74.545, kg, Start reanna e: 09/06/14 22:40:00, Duration: 30 day, Stop date: 10/06/14 17:00:00 Notes: (Same as: Risperdal) Start Date: 09/06/14 Stop Date: 09/11/14 Status: Discontinued risperidone 1 mg, 1 tab, Route: PO, Drug form: TAB, QAM, Dosing Weight 74.545, kg, Start reanna e: 09/07/14 9:00:00, Duration: 30 day, Stop date: 10/06/14 9:00:00 Notes: (Same as: Risperdal) Start Date: 09/07/14 Stop Date: 09/11/14 Status: Discontinued risperidone 1 mg oral tablet 1 mg=1 tab, PO, QAM Start Date: 09/06/14 Status: Ordered risperidone 1 mg oral tablet 3 mg=3 tab, PO, QPM Start Date: 09/06/14 Status: Ordered Saline Flush 0.9% 10 mL, Route: IVP, Drug Form: INJ, Dosing Weight 74.545, kg, PRN, PRN Line Flush , Start date: 09/06/14 18:43:00, Duration: 30 day, Stop date: 10/06/14 18:42:00 Notes: Same as: BD Posiflush Sterile Start Date: 09/06/14 Stop Date: 09/06/14 Status: Discontinued Saline Flush 0.9% 10 ml, Route: IVP, Drug Form: INJ, Dosing Weight 74.545, kg, PRN, PRN Line Flush , Start date: 09/06/14 21:15:00, Duration: 30 day, Stop date: 10/06/14 21:14:00 Notes: Same as: BD Posiflush Sterile Start Date: 09/06/14 Stop Date: 09/11/14 Status: Discontinued Sodium Chloride 0.9% (Bolus) IV 1,000 mL, 1,000 ml/hr, Infuse Over: 1 hr, Route: IV, ONCE, Priority: STAT, Dosin g Weight 74.545 kg, Start date: 09/06/14 19:02:00, Duration: 1 doses or times, S top date: 09/06/14 19:02:00 Start Date: 09/06/14 Stop Date: 09/06/14 Status: Completed Sodium Chloride 0.9% IV 1,000 mL 1,000 mL, Rate: 75 ml/hr, Infuse over: 13.3 hr, Route: IV, Dosing Weight 74.545 kg, Total Volume: 1,000, Start date: 09/06/14 21:15:00, Duration: 30 day, Stop d ate: 10/06/14 21:14:00 Start Date: 09/06/14 Stop Date: 09/07/14 Status: Discontinued Tylenol 650 mg, Route: PO, Drug form: TAB, ONCE, Dosing Weight 74.545, kg, Priority: STA T, Start date: 09/06/14 20:40:00, Stop date: 09/06/14 20:40:00 Start Date: 09/06/14 Stop Date: 09/06/14 Status: Completed Tylenol with Codeine #3 oral tablet 2 tab, PO, Q4H, # 12 tab, 0 Refill(s) Start Date: 09/11/14 Status: Ordered Tylenol with Codeine #3 oral tablet 2 tab, Route: PO, Drug Form: TAB, Dosing Weight 81.818, kg, Q4H, Start date: 12:00:00, Duration: 30 day, Stop date: 10/08/14 8:00:00 Notes: Do not exceed 4gm/day of acetaminophen. (Same as: Tylenol with Codeine # 3) Start Date: 09/08/14 Stop Date: 09/11/14 Status: Discontinued Unasyn + Sodium Chloride 0.9% IV 100 mL 3 gm, 1 ea, Route: IVPB, ABXQ6H, Dosing Weight 81.818, kg, Start date: 09/09/14 17:00:00, Duration: 30 day, Stop date: 10/09/14 11:00:00 Notes: Dosing based on Ampicillin component (Same as: Unasyn) Start Date: 09/09/14 Stop Date: 09/10/14 Status: Discontinued vancomycin 1 gm, 200 mL, Route: IVPB, Drug form: INJ, ABXQ8H, Dosing Weight 81.818, kg, Sta rt date: 09/07/14 22:00:00, Duration: 30 day, Stop date: 10/07/14 14:00:00 Start Date: 09/07/14 Stop Date: 09/09/14 Status: Discontinued vancomycin 1 gm, 200 mL, Route: IVPB, Drug form: INJ, [id number], Dosing Weight 74.545, kg, Pr iority: STAT, Start date: 09/06/14 21:15:00, Duration: 30 day, Stop date: 10:00:00 Start Date: 09/06/14 Stop Date: 09/07/14 Status: Discontinued vancomycin 1 gm, 200 mL, Route: IVPB, Drug form: INJ, ONCE, Dosing Weight 74.545, kg, Prior ity: STAT, Start date: 09/06/14 18:59:00, Stop date: 09/06/14 18:59:00 Start Date: 09/06/14 Stop Date: 09/06/14 Status: Deleted Zofran 4 mg, Route: IVP, Drug form: INJ, ONCE, Dosing Weight 74.545, kg, Priority: STAT , Start date: 09/06/14 19:00:00, Stop date: 09/06/14 19:00:00 Start Date: 09/06/14 Stop Date: 09/06/14 Status: Completed Zosyn 3.375 gm, 100 mL, Route: IVPB, Drug form: PDR/INJ, ABXQ8H, Dosing Weight 81.818, kg, CrCl >=20 ml/min infuse over 4 hours, Start date: 09/10/14 13:00:00, Duration: 30 day, Stop date: 10/10/14 5:00:00 Notes: (Same as: Zosyn)Infuse over 4 hours. Activate and reconstitute before us e. Dosing based on Piperacillin component Start Date: 09/10/14 Stop Date: 09/11/14 Status: Discontinued Results ELECTROLYTES 1 2 3 Most recent to oldest [Reference Range]: 138 mEq/L (09/11/14 5:50 AM) 139 mEq/L (09/10/14 5:50 AM) 137 mEq/L (09/09/14 5:40 AM) Sodium Lvl [135-145 mEq/L] 3.7 mEq/L (09/11/14 5:50 AM) 3.6 mEq/L (09/10/14 5:50 AM) 3.4 mEq/L *LOW* (09/09/14 5:40 AM) Potassium Lvl [3.5-5.1 mEq/L] 102 mEq/L (09/11/14 5:50 AM) 102 mEq/L (09/10/14 5:50 AM) 102 mEq/L (09/09/14 5:40 AM) Chloride Lvl [95-109 mEq/L] 30 mEq/L (09/11/14 5:50 AM) 30 mEq/L (09/10/14 5:50 AM) 28 mEq/L (09/09/14 5:40 AM) CO2 [24-32 mEq/L] 9.7 mEq/L *LOW* (09/11/14 5:50 AM) 10.6 mEq/L (09/10/14 5:50 AM) 10.4 mEq/L (09/09/14 5:40 AM) AGAP [10.0-20.0 mEq/L] CHEM PANEL 1 2 3 Most recent to oldest [Reference Range]: 0.9 mg/dL (09/11/14 5:50 AM) 0.8 mg/dL (09/10/14 5:50 AM) 0.8 mg/dL (09/09/14 5:40 AM) Creatinine Lvl [0.5-1.4 mg/dL] 104 mL/min/1.73m2 1 *NA* (09/11/14 5:50 AM) 109 mL/min/1.73m2 2 *NA* (09/10/14 5:50 AM) 109 mL/min/1.73m2 3 *NA* (09/09/14 5:40 AM) eGFR 11 mg/dL (09/11/14 5:50 AM) 10 mg/dL (09/10/14 5:50 AM) 10 mg/dL (09/09/14 5:40 AM) BUN [7-22 mg/dL] 16 (09/07/14 5:45 AM) B/C Ratio [6-25] 214 mg/dL 4 *HI* (09/11/14 5:50 AM) 224 mg/dL 5 *HI* (09/10/14 5:50 AM) 246 mg/dL 6 *HI* (09/09/14 5:40 AM) Glucose Lvl [70-99 mg/dL] 7.4 g/dL (09/07/14 5:45 AM) Total Protein [6.4-8.4 g/dL] 2.3 g/dL *LOW* (09/07/14 5:45 AM) Albumin Lvl [3.5-5.0 g/dL] 5.1 g/dL *HI* (09/07/14 5:45 AM) Globulin [2.0-4.0 g/dL] 0.5 *LOW* (09/07/14 5:45 AM) A/G Ratio [0.7-1.6] 8.4 mg/dL *LOW* (09/11/14 5:50 AM) 8.0 mg/dL *LOW* (09/10/14 5:50 AM) 7.8 mg/dL *LOW* (09/09/14 5:40 AM) Calcium Lvl [8.5-10.5 mg/dL] 40 unit/L (09/07/14 5:45 AM) ALT [0-65 unit/L] 24 unit/L (09/07/14 5:45 AM) AST [0-37 unit/L] 110 unit/L (09/07/14 5:45 AM) Alk Phos [39-136 unit/L] 0.4 mg/dL (09/07/14 5:45 AM) Bili Total [0.2-1.3 mg/dL] 1.99 mmol/L *HI* (09/06/14 7:13 PM) Ketone Quantitative [<=0.27 mmol/L] 1.4 mMol/L (09/06/14 7:45 PM) Lactic Acid Lvl [0.5-2.2 mMol/L] 1Result Comment: The eGFR is calculated using [...] from the [employer] ( [employer]) which additionally recommends that when the eGFR is used in patients with extremes of body mass index for purposes of drug dosing, the eGFR should be mul tiplied by the estimated BMI. 2Result Comment: The eGFR is calculated using [...] from the [employer] ( [employer]) which additionally recommends that when the eGFR is used in patients with extremes of body mass index for purposes of drug dosing, the eGFR should be mul tiplied by the estimated BMI. 3Result Comment: The eGFR is calculated using [...] from the [employer] ( [employer]) which additionally recommends that when the eGFR is used in patients with extremes of body mass index for purposes of drug dosing, the eGFR should be mul tiplied by the estimated BMI. 4Interpretive Data: Adult reference range values reflect the clinical guidelines of the [place] [employer]. 5Interpretive Data: Adult reference range values reflect the clinical guidelines of the [place] [employer]. 6Interpretive Data: Adult reference range values reflect the clinical guidelines of the [place] [employer]. SPECIAL CHEMISTRY 1 2 3 Most recent to oldest [Reference Range]: 12.4 % *HI* (09/07/14 5:45 AM) Hgb A1C [<=5.6 %] IMMUNOLOGY 1 2 3 Most recent to oldest [Reference Range]: 71.7 mg/L *HI* (09/11/14 5:50 AM) CRP [<=2.9 mg/L] >38,000 (09/06/14 7:13 PM) CRP [<=2.9] Negative (09/06/14 7:13 PM) CDC HIV 4th GEN [Negative] HEMATOLOGY 1 2 3 Most recent to oldest [Reference Range]: 8.0 K/CMM (09/11/14 5:50 AM) 8.5 K/CMM (09/10/14 5:50 AM) 9.9 K/CMM (09/09/14 5:40 AM) WBC [3.7-10.4 K/CMM] 4.39 M/CMM *LOW* (09/11/14 5:50 AM) 4.14 M/CMM *LOW* (09/10/14 5:50 AM) 4.09 M/CMM *LOW* (09/09/14 5:40 AM) RBC [4.70-6.10 M/CMM] 12.6 g/dL *LOW* (09/11/14 5:50 AM) 11.9 g/dL *LOW* (09/10/14 5:50 AM) 11.6 g/dL *LOW* (09/09/14 5:40 AM) Hgb [14.0-18.0 g/dL] 36.8 % *LOW* (09/11/14 5:50 AM) 34.7 % *LOW* (09/10/14 5:50 AM) 34.3 % *LOW* (09/09/14 5:40 AM) Hct [42.0-54.0 %] 83.9 fL (09/11/14 5:50 AM) 83.9 fL (09/10/14 5:50 AM) 83.8 fL (09/09/14 5:40 AM) MCV [80.0-94.0 fL] 28.7 pg (09/11/14 5:50 AM) 28.8 pg (09/10/14 5:50 AM) 28.4 pg (09/09/14 5:40 AM) MCH [27.0-31.0 pg] 34.2 g/dL (09/11/14 5:50 AM) 34.3 g/dL (09/10/14 5:50 AM) 33.9 g/dL (09/09/14 5:40 AM) MCHC [32.0-36.0 g/dL] 12.3 % (09/11/14 5:50 AM) 12.2 % (09/10/14 5:50 AM) 11.8 % (09/09/14 5:40 AM) RDW [11.5-14.5 %] 380 K/CMM (09/11/14 5:50 AM) 312 K/CMM (09/10/14 5:50 AM) 284 K/CMM (09/09/14 5:40 AM) Platelet [133-450 K/CMM] 7.7 fL (09/11/14 5:50 AM) 7.5 fL (09/10/14 5:50 AM) 7.6 fL (09/09/14 5:40 AM) MPV [7.4-10.4 fL] 62.0 % (09/11/14 5:50 AM) 64.8 % (09/10/14 5:50 AM) 73.8 % (09/09/14 5:40 AM) Segs [45.0-75.0 %] 18.5 % *LOW* (09/11/14 5:50 AM) 17.3 % *LOW* (09/10/14 5:50 AM) 12.0 % *LOW* (09/09/14 5:40 AM) Lymphocytes [20.0-40.0 %] 8.9 % (09/11/14 5:50 AM) 8.7 % (09/10/14 5:50 AM) 9.6 % (09/09/14 5:40 AM) Monocytes [2.0-12.0 %] 9.9 % *HI* (09/11/14 5:50 AM) 8.5 % *HI* (09/10/14 5:50 AM) 3.9 % (09/09/14 5:40 AM) Eosinophils [0.0-4.0 %] 0.7 % (09/11/14 5:50 AM) 0.7 % (09/10/14 5:50 AM) 0.7 % (09/09/14 5:40 AM) Basophils [0.0-1.0 %] 5.0 K/CMM (09/11/14 5:50 AM) 5.5 K/CMM (09/10/14 5:50 AM) 7.3 K/CMM (09/09/14 5:40 AM) Segs-Bands # [1.5-8.1 K/CMM] 1.5 K/CMM (09/11/14 5:50 AM) 1.5 K/CMM (09/10/14 5:50 AM) 1.2 K/CMM (09/09/14 5:40 AM) Lymphocytes # [1.0-5.5 K/CMM] 0.7 K/CMM (09/11/14 5:50 AM) 0.7 K/CMM (09/10/14 5:50 AM) 1.0 K/CMM *HI* (09/09/14 5:40 AM) Monocytes # [0.0-0.8 K/CMM] 0.8 K/CMM *HI* (09/11/14 5:50 AM) 0.7 K/CMM *HI* (09/10/14 5:50 AM) 0.4 K/CMM (09/09/14 5:40 AM) Eosinophils # [0.0-0.5 K/CMM] 0.1 K/CMM (09/11/14 5:50 AM) 0.1 K/CMM (09/10/14 5:50 AM) 0.1 K/CMM (09/09/14 5:40 AM) Basophils # [0.0-0.2 K/CMM] 55 mm/hr *HI* (09/11/14 5:50 AM) 89 mm/hr *HI* (09/06/14 7:13 PM) Sed Rate [0-15 mm/hr] Medications Administered During Your Visit No data available for this section Immunizations Vaccine Date Refusal Reason influenza virus vaccine, inactivated 09/08/14 pneumococcal 23-valent vaccine 09/08/14 Social History Social History Type Response Alcohol Use: Current, Type: Beer, Frequency: 1-2 times per year, Previous treatment: None, Has alcohol use interfered with work or home life? Yes, Do you ever drink more than intended? Yes, Has anyone been hurt or at risk by your drinking? No, Ready to change: Yes, Concerns about alcohol use in household: No Smoking Status Current some day smoker, Type: Cigarettes, Previous treatment: None, Ready to change: No, Concerns about tobacco use in household: No, Lives with someone who smokes, Cigarette Smoking Last 365 Days Yes, Reg Smoking Cessation Counseling Yes Assessment and Plan Extracted from: Title: Clinical Document Author: Kael Bullock MD Date: 09/06/14 History and Physical Attending: Jarek Powers MDPhone: Service: Emergency Medicine Service Code status: None Specified=FULL CODE Reason for Admission: EXTENSIVE LEFT BIG TOE CELLULITIS AND NECROSIS R/O OSTE Working DRG: None Documented Isolation: None Documented Consulting Physicians: (none on file) CC: left toe hurts HPI: This is a 43 yo w/ below PMHx who p/w 1 week h/o L great toe pain. Started as a sore w/ redness on medial L great toe. There was swelling and later started to drain pus. Redness spread to entire great toe. Pain worsened, described as burning. Aleve and advil helped w/ the pain. Had subjective fevers. Denies any injury toes, wears work boots that are loose fitting, no change footwear. Denies SOB, MARTINEZ, cough, CP, abd pain, diarrhea, constipation, N/V, poor appetite, urinary problems. PMHx: Schizophrenia PSHx: none FHx: mother- DM SHx: Occasional EtOH, tobacco, Denies illicit drugs. Meds: Home meds reviewed. Medication List Active Medications Ordered Insulin regular: 7 unit, IV, ONCE. risperidone: 3 mg, 3 tab, PO, QPM. risperidone: 1 mg, 1 tab, PO, QAM. sodium chloride: 10 mL, IVP, PRN, PRN: Line Flush. vancomycin: 1 gm, 200 mL, 200 ml/hr, IVPB, ONCE. Medications Inactivated in the Last 72 Hours Insulin regular: 100 unit, 1 mL, PYXIS, ONCE. morphine Sulfate: 4 mg, IVP, ONCE. morphine Sulfate: 4 mg, 2 mL, PYXIS, ONCE. ondansetron: 4 mg, IVP, ONCE. ondansetron: 4 mg, 2 mL, PYXIS, ONCE. piperacillin-tazobactam: 3.375 gm, 100 mL, 25 ml/hr, IVPB, ONCE. piperacillin-tazobactam: 3.375 gm, PYXIS, ONCE. risperidone: 0 Refill(s). Sodium Chloride 0.9% IV: 1,000 mL, 1,000 ml/hr, IV, ONCE. Sodium Chloride 0.9% IV: 100 mL, PYXIS, ONCE. Sodium Chloride 0.9% IV: 1,000 mL, PYXIS, ONCE. Allergies: NKDA ROS: See HPI. All other systems reviewed by myself are negative unless noted above. Physical Exam: VitalsTmp(F)[id number] 09/06 18:30-------134/102--100--- 09/06 17:[id number]--- 24 Hr Tmax: 98.4F (36.89c) at 09/06 17:55Vital Signs are the last 5 in the past 48 hours. General: NAD, nontoxic appearing HEENT: NCAT, PERRL, MMM, no JVD Cardiovascular: RRR, S1S2 Respiratory: CTAB Abdomen: +BS, NT/ND Extremities: no b/l LE edema Skin: 4th toe of R foot has callous; L foot 1st toe has circumerential erythema that is warm to touch along w/ what appears to be darkened necrotic tissue, no drainage at this time Neurologic: comprehension and speech intact, CN III-XII grossly intact, sensations intact to light touch in all extremities including all toes except L great toe Musculoskeletal: symmetric strength in all extremities, able to move all toes including L great toe Labs: 24hr Labs 09/06 1945 Lactic Acid Lvl1.4 09/06 1913 Glucose Yhb014 C BUN14 Creatinine Lvl0.9 Sodium Bhv604 L Potassium Lvl3.8 Chloride Lvl90 L CO230 AGAP13.8 Calcium Lvl9.9 kHMT144 Ketone Quantitative1.99 H WBC15.6 H RBC5.07 Hgb14.5 Hct41.8 L MCV82.6 MCH28.7 MCHC34.7 RDW12.1 Rxbsoyou831 MPV8.0 Segs77.7 H Hwjymsnlr67.2 H Lymphocytes7.8 L Eosinophils1.0 Basophils0.3 Segs-Bands #12.1 H Lymphocytes #1.2 Monocytes #2.1 H Eosinophils #0.2 CRP>38,000 09/06 1757 Glucose POC>500 C Micro: blood and wound cxs sent Imaging: CXR: Great toe distal phalangeal segment proximal metaphyseal fracture, with severe surrounding soft tissue swelling and subcutaneous emphysema. If no open wound is present, then anaerobic infection is suggested. EKG: sinus tachy, no ST-T wave changes Assessment and Plan: 43 yo p/w L toe pain w/ drainage and erythema. Pt appears to have cellulitis in that area, he does have fracture as well. The toe does appear to have some gangrene characteristics and he might have underlying osteomyelitis. He does meet criteria for sepsis w/ cellulitis + leukocytosis + tachycardia. # L great toe cellulitis and fracture: vanc and zosyn, orthopedic and podiatry consults, he might need amputation of the toe, will hold off MRI toe until morning (will not change overnight managment) to investigate for OM although his CRP is very high # hyperglycemia w/ very likely newly dx DM: although he has ketones, he does not have any anion gap so I do not believe his in DKA, placed on SSI, Hgb A1c in AM # tachycardia: likely from infxn and volume depletion (his sugar is pretty high): receiving IVF and encouraged good po intake # schizophrenia: c/w home risperidone Prophylaxis: subQ heparin Diet: diabetic Kael Leija
[2018-08-31] MEDS ORDERED: LABETALOL HCL 5 MG/ML 20ML VIAL IV ONE (09:45)
[2018-08-31] MEDS ORDERED: PIPER-TAZ 3.375 GM 50 ML IV ONE (09:45)
[2018-08-31] MEDS ORDERED: VANCOMYCIN HCL 2 GM in SODIUM CHLORIDE 0.9% 500ML 500 ML IV ONE (10:00)
[2018-08-31 10:10] LABS: BASOPHILS % 0.4 % (0.0-1.0); EOSINOPHILS # (AUTO) 0.4 (0.0-0.4); HEMATOCRIT 41.5 % (38.2-49.6); HEMOGLOBIN 13.9 g/dL (14.0-18.0); LYMPHOCYTES # (AUTO) 0.8 (1.0-3.2); LYMPHOCYTES % 7.5 % (18.0-39.1); MEAN CORPUSCULAR HEMOGLOBIN 29.7 pg (28-32); MEAN CORPUSCULAR HGB CONC 33.5 g/dL (31-35); MEAN CORPUSCULAR VOLUME 88.7 fL (81-99); MONOCYTES # (AUTO) 1.1 (0.2-0.8); MONOCYTES % 10.2 % (4.4-11.3); NEUTROPHILS % 77.2 % (38.7-80.0); PLATELET COUNT 339 x10e3/uL (140-360); RED BLOOD COUNT 4.68 x10e6/uL (4.3-5.7); RED CELL DISTRIBUTION WIDTH 12.6 % (11.7-14.4)
[2018-08-31 10:36] LABS: ALBUMIN 2.5 g/dL (3.5-5.0); ALBUMIN/GLOBULIN RATIO 0.5 (0.8-2.0); ANION GAP 16.1 mmol/L (8-16); CALCIUM 9.6 mg/dL (8.4-10.2); CHOL/HDL RATIO 3.2 (3.9-4.7); CREATININE, SERUM 1.34 mg/dL (0.72-1.25); POTASSIUM 4.1 mmol/L (3.5-5.1)
--- NOTE | 2018-08-31 10:44 | Diagnostic Imaging Report ---
PROCEDURE:X-RAY RIGHT FOOT, COMPLETE COMPARISON:None. INDICATIONS:SWELLING OF RIGHT FOOT, POST RIGHT BIG TOE AMPUTATION FINDINGS: Status post amputation of the first toe at the metatarsophalangeal level. Dislocation of the second toe metatarsophalangeal joint. Cortical irregularity/erosion at the base of the third toe proximal phalanx with step-off suggesting fracture fracture, and metatarsal head. Cortical irregularity/erosion in the base of the fourth toe proximal phalanx. Questionable cortical irregularity/erosion in the second toe metatarsal head and lateral aspect of the base of the second toe proximal phalanx. Marked soft tissue swelling in the foot, predominantly in the anterior aspect. Vascular calcifications. Ill-defined lucencies in the soft tissues between the second and third and third and fourth proximal phalanges, which may represent soft tissue gas. CONCLUSION: 1. Findings highly suggestive of osteomyelitis involving the second, third and fourth toes, as described. 2. Ill-defined lucencies in the soft tissues between the second and third and third and fourth proximal phalanges likely represents soft tissue gas. Larry Ugarte M.D. Dictated by: Larry Ugarte M.D. on 08/31/2018 at 10:53 Electronically approved by: Larry Ugarte M.D. on 08/31/2018 at 10:53
[2018-08-31] MEDS ORDERED: ONDANSETRON HCL INJ 2 MG/ML VIAL IV PRN (10:45)
[2018-08-31] MEDS ORDERED: SODIUM CHLORIDE FLUSH 10 ML SYR INJ PRN (10:45)
[2018-08-31] MEDS ORDERED: DEXTROSE 50% SYRINGE 50 ML IV PRN (10:45)
[2018-08-31] MEDS ORDERED: LANTUS 3ML100 UNITS/ SQ (11:03)
[2018-08-31] MEDS: INSULIN REGULAR, HUMAN 100 UNIT/1 ML 3ML VIAL SQ SCH ×3 (12:32→21:04)
--- NOTE | 2018-08-31 13:11 | Diagnostic Imaging Report ---
MRI of the right forefoot without contrast. History: Foot pain. Swelling. Osteomyelitis. Decreased range of motion. Pain not responding to conservative management prior amputation of the great toe with blister.. Technique: Multiplanar multisequence MRI without contrast Comparison: Radiographs 06/12/2018 Findings: Prior amputation of the first toe and a portion of the distal first metatarsal with associated postsurgical change. Skin thickening with ulceration and blistering at the plantar aspect of the foot at the level of the distal third metatarsal. There is abnormal bone marrow edema and cortical destruction in the distal second metatarsal, distal third metatarsal and distal fourth metatarsal. There is abnormal bone marrow edema and cortical destruction in the proximal third toe and in the proximal second toe. Small foci of air are seen in the soft tissues centered around the third toe. There is extensive soft tissue edema. No well-formed drainable fluid collection/abscess is seen. Fluid signal intensity is also seen surrounding the extensor tendons most pronounced at the extensor tendon to the third toe. The second toe is dorsally dislocated with respect to the distal metatarsal. The third toe is dorsally dislocated with respect to the adjacent metatarsal. Scattered degenerative changes are seen about the midfoot with regions of bone marrow edema which are likely stress related. Impression: Findings consistent with cellulitis, skin ulceration and developing phlegmon with suspected tenosynovitis and underlying osteomyelitis involving the third distal metatarsal, third toe, second distal metatarsal, second toe and distal fourth metatarsal. Signed by: Dr. Lincoln Jimenez M.D. on 08/31/2018 1:08 PM
[2018-08-31 14:24] LABS: BILIRUBIN,URINE NEGATIVE (NEGATIVE); CLARITY,URINE CLEAR (CLEAR); COLOR,URINE YELLOW (YELLOW); KETONES,URINE NEGATIVE (NEGATIVE); LEUKOCYTE ESTERASE ,URINE NEGATIVE (NEGATIVE); NITRITE,URINE NEGATIVE (NEGATIVE); PROTEIN,URINE DIPSTICK 2+ (NEGATIVE); URINE UROBILINOGEN 0.2 mg/dL (0.2 - 1)
[2018-08-31 14:49] LABS: BACTERIA,URINE FEW /HPF; EPITHELIAL CELLS,URINE RARE /LPF; HYALINE CASTS 0-1 (0-1); RBC,URINE 0-5 /HPF (0-5); WBC,URINE (MAN) 0-5 /HPF (0-5)
[2018-08-31] MEDS: HYDROCODONE/APAP 5MG-325MG TAB PO PRN (17:04)
[2018-08-31] MEDS: PIPER-TAZ 3.375 GM 50 ML IV SCH (19:07)
[2018-08-31 19:32] VITALS: BP 156/81
--- NOTE | 2018-08-31 19:34 | Consultation ---
DATE OF CONSULTATION: August 31, 2018 PODIATRY CONSULTATION REASON FOR CONSULTATION: Cellulitis and possible osteomyelitis with a grade 4 ulcer of the plantar aspect right foot. HISTORY OF PRESENT ILLNESS: This is a 47-year-old male who is well known to me from previous admissions, who relates he started developing cellulitis to the right foot 4 to 5 days ago and kept working. His foot started turning more swollen and red and started smelling, and he presented through to the emergency room and is currently denying any history of fever, chills, nausea or vomiting. PAST MEDICAL HISTORY: Remarkable for insulin-dependent diabetes times 5 years, hypertension. PAST SURGICAL HISTORY: Left foot surgery, amputations of the 1st, 2nd and 3rd toes with an amputation to the right great toe 3 to 4 months ago, and amputations to the left toes were done back in 2013. ALLERGIES: TO DIAL SOAP. CURRENT MEDICATIONS: Noted and listed in chart including IV vancomycin and Zosyn. SOCIAL HISTORY: Smokes a pack a week. Does not do any drugs or alcohol consumption. Works at . FAMILY HISTORY: Remarkable for diabetes. REVIEW OF SYSTEMS: CARDIAC: Denies any palpitations or arrhythmias. RESPIRATORY: Denies any shortness of breath, productive cough. GASTROINTESTINAL: Denies any diarrhea or constipation. GENITOURINARY: Denies any problems voiding or hematuria. VITAL SIGNS: Afebrile with an O2 saturation of 98%. Vital signs stable. LABS: Noted as a white blood cell count of 10.3, hemoglobin 13.9, hematocrit 41.5, platelet of 339 with a blood glucose of 277. PODIATRIC PHYSICAL EXAMINATION: Reveals the following. VASCULATURE: Pedal pulses, both the DP and PT, are palpable but diminished. CFT to all toes less than 4 seconds. Skin temperature warm to touch. NEUROLOGICAL: Reveals a complete loss of protective sensation when utilizing Bladen-Mario 5.07 monofilament wire. Muscle mass is asymmetrical. Some swelling noted to the right foot when compared to the left. Muscle strength is 4/5 to 5/5 to all muscle groups. DERMATOLOGICAL: He has a grade 4 ulceration plantar aspect right foot measuring 1.5 to 2 cm in diameter, tracking all the way from the plantar aspect of the foot down to the dorsal aspect of the 3rd toe right foot. Some crepitations felt. X RAYS: Were negative for any gas in the tissue. ASSESSMENT: Possible osteomyelitis with a grade 4 ulcer, cellulitis and foul smell. PLAN: Sharp excisional debridement of the ulcer was carried down to bone. A stab incision was performed to the dorsal aspect of the 3rd digit in a [id number] manner to allow for proper drainage of purulence, which was obtained and cultured for aerobic and anaerobic growth. A sterile dressing was applied, followed by diluted wet-to-dry Betadine. Will continue patient with IV antibiotics and local wound care. If not responsive, further debridements may be needed with even a possible partial amputation of foot if not responsive. Job#: [id number] EV
--- NOTE | 2018-08-31 20:04 | Diagnostic Imaging Report ---
Exam: Right foot 3 views History: Pain Comparison: August 31, 2018 Findings: Prior amputation of the first MTP joint. Dislocation/subluxation of the second and third MTP joints. Findings of septic arthritis of the second through fourth MTP joints with adjacent osteomyelitis. Impression: Findings of septic arthritis of the second through fourth MTP joints with adjacent osteomyelitis. Signed by: Dr. Derrell Spring M.D. on 08/31/2018 8:01 PM
[2018-08-31] MEDS ORDERED: SODIUM CHLORIDE 0.9% 250ML 250 ML ONE (20:42)
[2018-08-31] MEDS: VANCOMYCIN 1GM/NS 250 ML 250 ML IV SCH (21:04)
[2018-08-31 22:42] VITALS: BP 156/81
[2018-08-31 22:48] VITALS: BP 156/81
[2018-09-01] VITALS (7 sets, daily range): BP systolic 120–187; BP diastolic 79–99
[2018-09-01] MEDS: PIPER-TAZ 3.375 GM 50 ML IV SCH ×4 (00:30→18:00)
[2018-09-01 05:27] LABS: BASOPHILS % 0.4 % (0.0-1.0); EOSINOPHILS # (AUTO) 0.5 (0.0-0.4); HEMATOCRIT 38.1 % (38.2-49.6); HEMOGLOBIN 12.7 g/dL (14.0-18.0); LYMPHOCYTES # (AUTO) 0.8 (1.0-3.2); LYMPHOCYTES % 7.6 % (18.0-39.1); MEAN CORPUSCULAR HEMOGLOBIN 29.1 pg (28-32); MEAN CORPUSCULAR HGB CONC 33.3 g/dL (31-35); MEAN CORPUSCULAR VOLUME 87.4 fL (81-99); MONOCYTES # (AUTO) 1.1 (0.2-0.8); MONOCYTES % 11.1 % (4.4-11.3); NEUTROPHILS # (AUTO) 7.5 (2.1-6.9); NEUTROPHILS % 75.5 % (38.7-80.0); PLATELET COUNT 327 x10e3/uL (140-360); RED BLOOD COUNT 4.36 x10e6/uL (4.3-5.7); RED CELL DISTRIBUTION WIDTH 12.4 % (11.7-14.4)
[2018-09-01 05:42] LABS: ALANINE AMINOTRANSFERASE 13 IU/L (0-55); ALBUMIN 2.2 g/dL (3.5-5.0); ALBUMIN/GLOBULIN RATIO 0.5 (0.8-2.0); ALKALINE PHOSPHATASE 99 IU/L (40-150); ANION GAP 16.1 mmol/L (8-16); BLOOD UREA NITROGEN 16 mg/dL (7-26); BUN/CREATININE RATIO 14 (6-25); CALCIUM 8.8 mg/dL (8.4-10.2); CARBON DIOXIDE 20 mmol/L (22-29); CHLORIDE 100 mmol/L (98-107); CREATININE, SERUM 1.18 mg/dL (0.72-1.25); EST GLOMERULAR FILTRATION RATE > 60 ML/MIN (60-); GLUCOSE 215 mg/dL (74-118); MAGNESIUM 1.5 MG/DL (1.3-2.1); PHOSPHORUS 4.1 MG/DL (2.3-4.7); POTASSIUM 4.1 mmol/L (3.5-5.1); SODIUM 132 mmol/L (136-145)
[2018-09-01] MEDS: VANCOMYCIN 1GM/NS 250 ML 250 ML IV SCH ×2 (08:00→20:35)
[2018-09-01] MEDS: INSULIN REGULAR, HUMAN 100 UNIT/1 ML 3ML VIAL SQ SCH ×4 (08:00→21:09)
[2018-09-01] MEDS: FLUOXETINE HCL 20 MG CAP PO SCH (08:30)
[2018-09-01] MEDS: LABETALOL HCL 100 MG TAB PO SCH ×2 (08:30→20:45)
[2018-09-01] MEDS: NIFEDIPINE CR 30 MG TAB PO SCH ×2 (08:30→20:45)
[2018-09-01] MEDS: FAMOTIDINE 20 MG TAB PO SCH ×2 (08:30→16:30)
--- NOTE | 2018-09-01 08:31 | History and Physical ---
PRIMARY CARE PHYSICIAN: Dr. Carlos Chavarria CHIEF COMPLAINT: Right foot swelling. HISTORY OF PRESENT ILLNESS: This is a 47-year-old man who was treated for right great toe cellulitis and gangrenous changes and osteomyelitis to the right foot in May 2018. Had transitioned to [facility] for IV antibiotics, and now developing swelling of the right foot. He admits that his glucose has not been controlled. Above 200 on multiple occasions at home. Here he was found to have osteomyelitis of the foot and septic arthritis. He is admitted for further evaluation and management. PAST MEDICAL HISTORY: Right great toe cellulitis and gangrene, status post amputation, osteomyelitis of the right great toe, acute kidney injury, hyponatremia, diabetes mellitus, type 2. Hemoglobin A1c 10.9 and LDL 79 in May 2018. Hyponatremia, cigarette use, Proteus mirabilis and group B strep osteomyelitis, diabetic foot ulcers of the left foot, status post multiple toe amputations. PAST SURGICAL HISTORY: Left foot multiple toe amputations in 2014, right foot great toe amputation in May 2018. ALLERGIES: PER ELECTRONIC MEDICAL RECORD. FAMILY HISTORY/SOCIAL HISTORY: Patient is . He has no children. No alcohol or illicits. He smokes quarter pack of cigarettes per day. MEDICATIONS: Per electronic medical record. REVIEW OF SYSTEMS: Denies any dizziness, chest pain, shortness of breath, fever, chills, sweats, nausea, vomiting, diarrhea, headache, neck pain, leg pain. PHYSICAL EXAMINATION VITAL SIGNS: Reviewed. GENERAL: A tired-appearing man resting in bed. HEENT: Anicteric. CARDIOVASCULAR: Normal S1 and S2. Rapid heart rate. LUNGS: Moderate breath sounds. ABDOMEN: Soft, nontender and nondistended. EXTREMITIES: His right foot is in a dressing clean and dry. There is edema present. SKIN: Dry. PSYCHIATRIC: Flat affect. NEUROLOGICAL: Alert and oriented times 3. Moving all extremities. LABS: Reviewed. MEDICATIONS: Reviewed. ASSESSMENT: A 47-year-old man with: 1. Severe sepsis with acute kidney injury. 2. Acute kidney injury. 3. Uncontrolled diabetes mellitus, type 2. 4. Osteomyelitis of the right foot. 5. Septic arthritis to the right foot. 6. Severe obesity with body mass index of 40.4. 7. Cigarette use. PLAN 1. Continue IV Zosyn and IV vancomycin. 2. The patient will need antibiotics for 4-6 weeks. 3. Continue nicotine patch. 4. Continue antihypertensive medications. 5. Continue insulin. 6. Podiatry consultation. 7. Infectious disease consultation. 8. Follow up cultures of the wound and blood. 9. Counseling on compliance with diabetic diet and management of blood sugar to keep blood sugar below 180. 10. Start Lovenox and Pepcid prophylaxis. 11. Disposition. Follow up recommendations. Job#: [id number] ALIRIO
[2018-09-01] MEDS: HYDROCODONE/APAP 5MG-325MG TAB PO PRN ×2 (08:35→20:46)
[2018-09-01] MEDS: NICOTINE 7 MG PATCH TOP SCH (09:00)
[2018-09-01] MEDS ORDERED: NICOTINE 7 MG TOP SCH (09:00)
[2018-09-01] MEDS ORDERED: INSULIN DETEMIR 100 UNIT/ML PEN SQ SCH ×2 (09:00→21:00)
--- NOTE | 2018-09-01 09:52 | Progress Note ---
DATE: September 01, 2018 SUBJECTIVE: Patient is doing better. Is denying any history of fever, chills, nausea, or vomiting. OBJECTIVE VITAL SIGNS: Afebrile, pulse rate 104, respirations 20, blood pressure 174/99, O2 saturation 96%. EXTREMITIES: Ulceration to the right lower extremity improving. There is still some cellulitis to the dorsal aspect with a moderate amount of swelling noted. LABS: Noted. Has a white blood cell count dropping to 9.9, hemoglobin 12.7 and platelet count of 327,000. Has a blood glucose of 215. ASSESSMENT: Grade 4 ulcer, possible osteomyelitis, right foot with diabetic neuropathy and cellulitis. PLAN: Will continue IV antibiotics. Continue local wound care with diluted wet-to-dry Betadine twice a day. Will continue to follow. Job#: [id number] ALIRIO
--- NOTE | 2018-09-01 12:35 | Consultation ---
DATE OF CONSULTATION: September 01, 2018 ATTENDING PHYSICIAN: Carlos Chavarria MD REASON FOR CONSULTATION: Diabetic foot ulcer and osteomyelitis. Thank you, Dr. Chavarria, for asking me to see this patient. CLINICAL HISTORY: The patient is a 47-year-old man referred for diabetic foot ulcer and osteomyelitis. He presented to the emergency department with progressive swelling and redness of the right foot for several days, associated with fever and chills. The patient was hospitalized in May 2018 with right infected diabetic foot ulcer, right great toe gangrene and osteomyelitis. The patient was evaluated by the podiatry service and successfully underwent amputation of the right great toe. He improved with management. Unfortunately, the patient continued to wear his regular shoes, and the wound failed to heal. PAST MEDICAL HISTORY: Diabetes mellitus type 2, acute kidney injury, diabetic foot ulcer with osteomyelitis. PAST SURGICAL HISTORY: Left 1st through 3rd toe amputations in 2013 and right great toe amputation in May 2018. ALLERGIES: NO KNOWN DRUG ALLERGIES. MEDICATIONS: See MAR. The current antibiotics are Zosyn 3.375 grams IV piggyback q.6 h. and vancomycin 1 gram IV piggyback q.12 h. IMMUNIZATIONS: He received influenza vaccine about June 2018 and tetanus-diphtheria vaccine in May 2018. FAMILY HISTORY: Noncontributory. SOCIAL HISTORY: The patient still smokies cigarettes but vague about the quantity. He drinks alcohol occasionally. No recreational drug use. REVIEW OF SYSTEMS: As per history of present illness. PHYSICAL EXAMINATION GENERAL: No acute distress. VITALS: T-max 100.4, pulse rate 104, respiratory rate 20, blood pressure 174/99. Weight 211 pounds. HEENT: Normocephalic. There is no icterus or injection of conjunctivae. There is no ear or nasal discharge. Moist oral mucosa. No pharyngeal erythema or exudate. NECK: Supple. No meningismus or lymphadenopathy. LUNGS: Clear to auscultation bilaterally. HEART: Normal S1 and S2. ABDOMEN: Soft, nontender. EXTREMITIES: There are debrided ulcers at the plantar aspect of the right forefoot. The dorsalis pedis and posterior tibial pulses are palpable in both feet. SKIN: As per extremities. IT INTEGRATION ARCHITECT: Awake, alert and oriented to person, place and time. There is decreased sensation to monofilament test of the feet. Nonfocal. LABORATORY AND DIAGNOSTICS: WBC 9,930; hemoglobin 12.7; platelets 327,000, neutrophils 75.5, lymphs 7.6, monos 11.1, eosinophils 5, basophils 0.4. ESR 97. BUN 16, creatinine 1.18, blood glucose 215. Hemoglobin A1c 10.1. Wound culture is pending. Blood culture is also pending. Right foot MRI showed findings consistent with cellulitis, skin ulceration and developing phlegmon with suspected tenosynovitis and underlying osteomyelitis involving the 3rd distal metatarsal, 3rd toe; 2nd distal metatarsal, 2nd toe; and distal 4th metatarsal. IMPRESSION 1. Infected diabetic foot ulcer present on admission. 2. Cellulitis present on admission. 3. Osteomyelitis, right foot. 4. Diabetes mellitus, type 2, with peripheral neuropathy, uncontrolled. 5. Tobacco use disorder. PLAN 1. Await wound and blood culture results. 2. Podiatry input has been noted. 3. Smoking cessation counseling was provided to the patient and patient was started on nicotine patch. Job#: [id number] ALESSANDRA CRISOSTOMO
[2018-09-01] MEDS ORDERED: FAMOTIDINE 20 MG TAB PO SCH (16:30)
[2018-09-01] MEDS: ENOXAPARIN SOD INJ 40 MG/0.4 ML SYR SC SCH (17:00)
[2018-09-01] MEDS ORDERED: NON-FORMULARY MEDICATION (Aripiprazole (Abilify) 5 MG) PO SCH (21:00)
[2018-09-01] MEDS ORDERED: ARIPIPRAZOLE 5 MG TABLET PO SCH (21:00)
[2018-09-02] VITALS: BP 114/64
[2018-09-02 04:00] VITALS: BP 119/64
[2018-09-02] MEDS: PIPER-TAZ 3.375 GM 50 ML IV SCH ×4 (06:00→17:45)
[2018-09-02] MEDS: INSULIN REGULAR, HUMAN 100 UNIT/1 ML 3ML VIAL SQ SCH ×3 (07:30→16:30)
[2018-09-02 07:36] VITALS: BP 116/56
[2018-09-02] MEDS: FAMOTIDINE 20 MG TAB PO SCH ×2 (08:00→16:30)
[2018-09-02] MEDS: VANCOMYCIN 1GM/NS 250 ML 250 ML IV SCH (08:00)
--- NOTE | 2018-09-02 08:52 | Progress Note ---
DATE: September 02, 2018 SUBJECTIVE: Patient at bedside. Doing better. Denies any history of fever, chills, nausea, or vomiting. OBJECTIVE VITALS: Afebrile, pulse rate 99, respirations 18, blood pressure 116/56, O2 saturation 96%. EXTREMITIES: Ulcerations and cellulitis to the right lower extremity improving. There is still some drainage dorsally and plantarly. Still some edema specifically to the 3rd digit of the right foot. ASSESSMENT: Possible osteomyelitis with grade 4 ulcer and cellulitis. PLAN: Will continue IV antibiotics. Continue local wound care. Will let the foot demarcate. If not any better, the patient will need further debridement. Ulceration is less than 1.5 to 2 cm in diameter tracking all the way down to bone. Job#: [id number] MD
[2018-09-02] MEDS: NICOTINE 7 MG PATCH TOP SCH (09:00)
[2018-09-02] MEDS ORDERED: INSULIN DETEMIR 100 UNIT/ML PEN SQ SCH (09:00)
[2018-09-02] MEDS: NIFEDIPINE CR 30 MG TAB PO SCH (09:00)
[2018-09-02] MEDS: FLUOXETINE HCL 20 MG CAP PO SCH (09:00)
[2018-09-02] MEDS: LABETALOL HCL 100 MG TAB PO SCH (09:00)
[2018-09-02 12:00] VITALS: BP 123/67
[2018-09-02 16:00] VITALS: BP 114/63
[2018-09-02] MEDS: ENOXAPARIN SOD INJ 40 MG/0.4 ML SYR SC SCH (17:00)
== END 2018-09-02 19:32 | DRG 854 ==
LOC: ER 09:13 → ERHOLD 11:00 → MED/SURG3 19:43
PROVIDERS: ADMIT Internal Medicine; ATTEND Internal Medicine
PROC: 0QBN0ZZ Excision of Right Metatarsal, Open Approach (ICD-10-PCS; principal; 2018-08-31)
DX: A41.9 Sepsis, unspecified organism (principal); M86.9 Osteomyelitis, unspecified; N17.9 Acute kidney failure, unspecified; Z68.41 Body mass index [BMI] 40.0-44.9, adult; E11.69 Type 2 diabetes mellitus with other specified complication; R65.20 Severe sepsis without septic shock; Z79.4 Long term (current) use of insulin; E11.65 Type 2 diabetes mellitus with hyperglycemia; F17.210 Nicotine dependence, cigarettes, uncomplicated; M65.9 Synovitis and tenosynovitis, unspecified; E11.40 Type 2 diabetes mellitus with diabetic neuropathy, unspecified; E11.621 Type 2 diabetes mellitus with foot ulcer; L97.514 Non-pressure chronic ulcer of other part of right foot with necrosis of bone; E66.01 Morbid (severe) obesity due to excess calories
CPT/HCPCS: 36415; 80053; 80061; 80202; 81001; 82948; 83036; 83605; 83735; 84100; 85025; 85651; 86140; 87040; 87071; 87205; 99284; J1650; J2543; J3370; J7040; J7050